=== PATIENT | female | born 1935 | race Caucasian/White ===

== ENCOUNTER 2021-05-30 19:25 | Observation (INO) | payer MEDICARE ==
[~2021-05-30] VITALS: Ht 144.8 cm; Wt 54.4 kg
[2021-05-30 22:38] LABS: BASO % 0.4 % (0.0-1.0); EOS # 0.1 10^3/uL (0.0-0.5); EOS % 1.7 % (0.0-3.0); HEMATOCRIT 27.4 % (36.0-47.0); HEMOGLOBIN 8.8 g/dl (12.0-15.5); LYMPH # 0.7 10^3/uL (1.5-5.0); LYMPH % 15.4 % (24.0-44.0); MEAN CORPUSCULAR HEMOGLOBIN 33.2 pg (27.0-33.0); MEAN CORPUSCULAR HGB CONC 32.1 g/dl (32.0-36.5); MEAN CORPUSCULAR VOLUME 103.4 fl (80.0-96.0); MONO # 0.6 10^3/uL (0.0-0.8); NEUTROPHILS # 3.3 10^3/uL (1.5-8.5); NEUTROPHILS % 70.3 % (36.0-66.0); PLATELET COUNT, AUTOMATED 253 10^3/uL (150-450); RED BLOOD COUNT 2.65 10^6/uL (4.00-5.40); WHITE BLOOD COUNT 4.7 10^3/uL (4.0-10.0)
[2021-05-30] MEDS ORDERED: vit b PO (23:13)
[2021-05-30] MEDS ORDERED: MIRT1TAB16 PO (23:13)
[2021-05-30] MEDS ORDERED: SYNT50TA PO (23:13)
[2021-05-30] MEDS ORDERED: PEPC1TAB5 PO (23:13)
[2021-05-30] MEDS ORDERED: XARE20TA PO (23:13)
[2021-05-30] MEDS ORDERED: LEXA5TAB13 PO (23:13)
[2021-05-30] MEDS ORDERED: SYNT75TA PO (23:13)
[2021-05-30] MEDS ORDERED: SIMV20TA22 PO (23:13)
[2021-05-30] MEDS ORDERED: POTA20TA6 PO (23:13)
[2021-05-30] MEDS ORDERED: LISI20TA33 PO (23:13)
--- NOTE | 2021-05-30 23:42 | REPVR ---
PROCEDURE INFORMATION: Exam: US Duplex Right Lower Extremity Veins, Limited Exam date and time: 05/30/2021 11:09 PM Age: 86 years old Clinical indication: Edema, localized; Lower extremity, right; Additional info: Right lower extremity swelling and pain. TECHNIQUE: Imaging protocol: Real-time Duplex ultrasound of the Right Lower Extremity with 2-D winter scale, color Doppler flow and spectral waveform analysis with image documentation. Limited exam was focused on the right lower extremity veins. COMPARISON: No relevant prior studies available. FINDINGS: Right deep veins: Unremarkable. The common femoral, femoral, and popliteal veins are patent without thrombus. Normal compressibility, augmentation response and Doppler waveforms. The right posterior tibial and peroneal veins were not visualized due to soft tissue edema in the right calf. Right superficial veins: Unremarkable. Saphenofemoral junction is patent without thrombus. Soft tissues: There is soft tissue edema in the right calf. IMPRESSION: No deep vein thrombosis in the veins imaged in the right lower extremity. Electronically signed by: Ariel Norman On 05/30/2021 23:41:40 PM
[2021-05-31] LABS: BLOOD UREA NITROGEN 14 MG/DL (7-18); CALCIUM LEVEL 8.4 MG/DL (8.8-10.2); CARBON DIOXIDE LEVEL 28 MEQ/L (21-32); CHLORIDE LEVEL 109 MEQ/L (98-107); CREATININE FOR GFR 0.88 MG/DL (0.55-1.30); GLOMERULAR FILTRATION RATE > 60.0 (>32); GLUCOSE, FASTING 144 MG/DL (70-100); MAGNESIUM LEVEL 2.2 MG/DL (1.8-2.4); NT-PRO BNP 607 PG/ML (<450); POTASSIUM SERUM 3.6 MEQ/L (3.5-5.1); SODIUM LEVEL 144 MEQ/L (136-145)
[2021-05-31] MEDS ORDERED: FUROSEMIDE 40MG/4ML VIAL (J1940) IV ONE (00:20)
[2021-05-31] MEDS ORDERED: MAALOX 30 ML SUSP *UDC PO PRN (00:45)
[2021-05-31] MEDS ORDERED: MOM 30ML SUSPENSION UDC PO PRN (00:45)
[2021-05-31] MEDS ORDERED: ACETAMINOPHEN TAB 650MG DOSE (2X325MG) PO PRN (00:45)
--- NOTE | 2021-05-31 00:47 | HPEPDOC ---
[facility] Medical History & Physical Date of Admission May 31, 2021 Date of Service: May 31, 2021 Other Provider new in town no PCP yet Attending Physician: JOSEY CASTAÑEDA MD History and Physical TIME OF SERVICE: 110am CHIEF COMPLAINT: pain HISTORY OF PRESENT ILLNESS: is an 86 yr old F that recently moved to the area from [place] to live with her grand-daughter. Over the last 3 days she developed right lower leg redness pain and swelling that makes it difficult for her to walk. She denies having fevers or chills. REVIEW OF SYSTEMS: 10-point review of systems negative except as listed in HPI PAST MEDICAL/ SURGICAL HISTORY: Multiple Myeloma (last dose of Chemo March), chemo port associated LUE DVT, Hypothyroidism, essential HTN, mild cognitive impairment, right arm chemo port placement FAMILY HISTORY: reviewed non-contributory to current admission SOCIAL HISTORY: she doesn't smoke ALLERGIES: Please see below. HOME MEDICATIONS: Please see below. PHYSICAL EXAMINATION: Vital Signs Date Time Temp Pulse Resp B/P (MAP) Pulse Ox O2 Delivery O2 Flow Rate FiO2 05/30/21 19:27 98.6 76 18 183/88 (119) 98 Room Air GENERAL APPEARANCE: well-nourished and developed/ NAD HEENT: EOMI / MMM&P CARDIOVASCULAR: RRR/NMRG LUNGS: CTAB on RA ABDOMEN: contour flat MUSCULOSKELETAL: NCAT /rubor,dalor & calor of RLE INTEGUMENT: not flushed pale or diaphoretic NEUROLOGICAL: CN 2-12 grossly intact / speech not dysarthric PSYCHIATRIC: A&O x 3 / able to understand and follow all commands LABORATORY DATA: IMAGING: RLE US "IMPRESSION: No deep vein thrombosis in the veins imaged in the right lower extremity." MICROBIOLOGY: Respiratory panel neg ASSESSMENT: is an 86 yr old w Multiple Myeloma, port associated LUE DVT, Hypothyroidism, HTN & mild cognitive impairment who is admitted for management of RLE cellulitis. PLAN: 1 RLE Cellulitis -ALT-70 Score to diagnose LE Cellulitis = 5 points = > 82.2% likelihood of true cellulitis Plan: admit under observation status / fall precautions / elevate leg / because the infection is mild we will switch from IV to Po Bactrim which covers both MRSA and beta hemolytic strep/ will refer her to the [facility] 2 Hx of LUE DVT associated with left upper extremity port Plan: c/w rivaroxaban 3 MM She has anemia but her Ca++ and Cr are not elevated Plan: request records from ([employer] in [place]) / she will need a referral to our local Hematologists 3 Essential HTN Plan: lisinopril 4 Hypothyroidism Plan: levothyroxine DVT px n/a on DOAC Dispo: home with granddaughter Yanna Beal [phone] after less than 2 midnights stay Home Medications Scheduled Escitalopram Oxalate (Lexapro) 5 Mg Tablet, 5 MG PO DAILY Famotidine (Famotidine) 10 Mg Tablet, 10 MG PO DAILY Levothyroxine Sodium (Synthroid) 50 Mcg Tablet, 50 MCG PO 3XW SATURDAY, SATURDAY AND SATURDAY Levothyroxine Sodium (Synthroid) 75 Mcg Tablet, 75 MCG PO 4XWK SATURDAY, SATURDAY, SATURDAY AND SATURDAY Lisinopril (Lisinopril) 20 Mg Tablet, 20 MG PO DAILY Mirtazapine (Remeron) 15 Mg Tablet, 22.5 MG PO QHS Potassium Chloride (Potassium Chloride) 20 Meq Tab.er.prt, 20 MEQ PO DAILY Rivaroxaban (Xarelto) 20 Mg Tablet, 20 MG PO QPM TAKES AFTER DINNERTIME Simvastatin (Simvastatin) 20 Mg Tablet, 20 MG PO QHS Vitamin B Complex (Vitamin B Complex) 1 Each Tablet, 1 TAB PO DAILY Allergies Coded Allergies: moxifloxacin (Verified Allergy, Intermediate, 05/30/21) A-FIB/CHADSVASC A-FIB History Current/History of A-Fib/PAF?: No Current PO Anticoag Therapy: JOSEY Neves MD May 31, 2021 00:47
[2021-05-31 01:13] LABS: RSV AMPLIFICATION NEGATIVE (NEGATIVE)
[2021-05-31] MEDS ORDERED: MIRT-62 PO (02:17)
[2021-05-31] MEDS ORDERED: VITATAB73 PO (02:17)
[2021-05-31] MEDS ORDERED: FAMO10TA52 PO (02:17)
[2021-05-31] MEDS ORDERED: HOME MED LIST COMPLETE! XX SCH (02:20)
[2021-05-31 02:32] LABS: ERYTHROCYTE SEDIMENTATION RATE 126 mm/hr (0-30)
[2021-05-31 02:49] VITALS: BP 151/76
[2021-05-31] MEDS: BACTRIM 160MG/800MG DS TAB PO SCH ×2 (03:16→20:12)
[2021-05-31 06:00] VITALS: BP 115/69
[2021-05-31] MEDS ORDERED: LEVOTHYROXINE 50MCG TABLET (0.05MG) PO SCH (06:00)
[2021-05-31 06:52] LABS: BLOOD UREA NITROGEN 13 MG/DL (7-18); CARBON DIOXIDE LEVEL 31 MEQ/L (21-32); CHLORIDE LEVEL 108 MEQ/L (98-107); CREATININE FOR GFR 0.82 MG/DL (0.55-1.30); GLOMERULAR FILTRATION RATE > 60.0 (>32); GLUCOSE, FASTING 91 MG/DL (70-100); POTASSIUM SERUM 3.6 MEQ/L (3.5-5.1); SODIUM LEVEL 144 MEQ/L (136-145)
[2021-05-31 06:53] LABS: ALBUMIN 2.5 GM/DL (3.2-5.2); ALT/SGPT 18 U/L (12-78); BILIRUBIN,TOTAL 0.5 MG/DL (0.2-1.0); CALCIUM LEVEL 8.6 MG/DL (8.8-10.2); TOTAL PROTEIN 5.9 GM/DL (6.4-8.2)
[2021-05-31] MEDS ORDERED: PILL CUTTER 1 EACH XX PRN (08:05)
[2021-05-31] MEDS: ESCITALOPRAM OXALATE 5MG TABLET (LEXAPRO) PO SCH (08:34)
[2021-05-31] MEDS: POTASSIUM CHLORIDE 10MEQ SR TABLET PO SCH (08:34)
[2021-05-31 09:05] VITALS: BP 107/58
[2021-05-31 09:25] VITALS: BP_SYST 102; BP_SYST 103; BP_DIAS 55; BP_DIAS 56; BP_DIAS 57
[2021-05-31 09:58] LABS: BASO % 0.4 % (0.0-1.0); EOS # 0.1 10^3/uL (0.0-0.5); EOS % 1.7 % (0.0-3.0); HEMATOCRIT 28.6 % (36.0-47.0); HEMOGLOBIN 9.1 g/dl (12.0-15.5); LYMPH # 0.9 10^3/uL (1.5-5.0); LYMPH % 19.4 % (24.0-44.0); MEAN CORPUSCULAR HGB CONC 31.8 g/dl (32.0-36.5); MEAN CORPUSCULAR VOLUME 103.6 fl (80.0-96.0); MONO # 0.4 10^3/uL (0.0-0.8); NEUTROPHILS # 3.3 10^3/uL (1.5-8.5); NEUTROPHILS % 69.1 % (36.0-66.0); PLATELET COUNT, AUTOMATED 284 10^3/uL (150-450); RED BLOOD COUNT 2.76 10^6/uL (4.00-5.40); WHITE BLOOD COUNT 4.8 10^3/uL (4.0-10.0)
--- NOTE | 2021-05-31 10:11 | ECGEPIP ---
[facility] Test Date: 2021-05-31 Pat Name: NEHEMIAS COSME Department: Room: [place] [address] Gender: Female [employer]: [place] : 1935 Requested By: VIOLETTA CAMERON Order Number: [id number] Reading MD: Quincy Fenton Measurements Intervals [place] Rate: 70 P: 45 TX: 166 QRS: -10 QRSD: 86 T: 28 QT: 420 QTc: 453 Interpretive Statements Normal sinus rhythm No prior Electronically Signed on 05-31-2021 10:11:10 EDT by Quincy Fenton
[2021-05-31 10:19] LABS: TROPONIN I < 0.02 NG/ML (< 0.10)
[2021-05-31] MEDS ORDERED: NS 500 ML IV ONE (10:40)
[2021-05-31 11:56] LABS: INR 1.38; PARTIAL THROMBOPLASTIN TIME 32.9 SECONDS (25.9-37.0); PROTHROMBIN TIME 17.3 SECONDS (12.7-14.5)
[2021-05-31 14:00] VITALS: BP 114/66
--- NOTE | 2021-05-31 14:24 | IPNPDOC ---
Date Seen The patient was seen on 05/31/21. Progress Note SUBJECTIVE: Patient was seen examined at bedside. Upon my entering the room patient was being helped into bed by nurse and nurses aide. Apparently patient was on the toilet when she felt lightheaded dizzy and diaphoretic. She did not have a syncopal episode. When she was helped into bed her symptoms subsided. She denies any cysts shortness of breath palpitations chest pain nausea vomiting or diarrhea. She had no blurred vision. She is alert and oriented x4. OBJECTIVE PHYSICAL EXAMINATION: VITAL SIGNS: please see below General: NAD, comfortable HEENT: PERRLA, EOMI, sclerae clear Neck: supple, normal ROM, no JVD Respiratory: lungs CTAB, no wheeze, no rales, no crackles CVS: RRR, normal S1, S2, no murmurs Abdo: soft, no masses, no hepatosplenomegaly, BS+, no rebound tenderness Extremities: no edema, pulses 2+ MSK: no joint deformities, normal ROM Neuro: no focal neuro deficits, moving all 4 extremities, CN2-12 intact. Strength 5/5 in all 4 extremities. No nystagmus. No slurred speech. No pronator drift Psych: calm, cooperative, AAO x 3 LABORATORY DATA, IMAGING STUDIES, MICROBIOLOGY: Please see below. Venous duplex (05/30/21): IMPRESSION: No deep vein thrombosis in the veins imaged in the right lower extremity. Echocardiogram: Ordered on 05/31/2021 DVT prophylaxis ordered?: Patient is on Xarelto. ASSESSMENT AND PLAN: is an 86 yr old w Multiple Myeloma, port associated LUE DVT, Hypothyroidism, HTN & mild cognitive impairment who is admitted for management of RLE cellulitis. She also sustained a presyncopal episode on the morning of 05/31/2021. PROBLEMS: #RLE Cellulitis: - will continue with bactrim that was started on admission #Elevated Lactic Acid - in setting of cellulitis, possibly exacerbated by dose of IV furosemide patient received in ER on admission - will give 500 cc NS bolus - repeat LA ordered - will check blood cx #Pre-syncope - likely vasovagal, was sitting on toilet during event - orthostats negative - check 2D echo - patient has refused - EKG showing NSR. - tele x 24 hours ordered - HSE ordered from PT. #Hx of LUE DVT associated with LUE port - c/w Xarelto #Multiple Myeloma - records have been requested from Dr. Jimenez (patient's MM specialist) - will refer patient to oncology at [facility]. #Essential HTN - c/w lisinopril #Hypothyroidism - c/w levothyroxine - TSH elevated, 12. Free T4 wnl DVT ppx: on xarelto Dispo: patient is expected to be DC on 06/01/21. CODE STATUS: patient has informed me directly, that she wishes to be DNR/DNI, and has MOLST forms at home. She is clearly alert and oriented, and has full capacity to make personal medical decisions. DNR/DNI orders placed. VS, I&O, 24H, Fishbone Vital Signs/I&O Vital Signs Date Time Temp Pulse Resp B/P (MAP) Pulse Ox O2 Delivery O2 Flow Rate FiO2 05/31/21 09:25 72 103/57 (72) 76 102/56 (71) 80 102/55 (71) 05/31/21 09:05 20 95 Room Air 05/31/21 06:00 98.0 I&O- Last 24 Hours up to 6 AM 05/31/21 06:00 Intake Total 0 ml Output Total 1350 ml Balance -1350 ml Laboratory Data 24H LABS Laboratory Tests 2 05/30/21 22:22: Immature Granulocyte % (Auto) 0.2, Neutrophils (%) (Auto) 70.3H, Lymphocytes (%) (Auto) 15.4L, Monocytes (%) (Auto) 12.0H, Eosinophils (%) (Auto) 1.7, Basophils (%) (Auto) 0.4, Neutrophils # (Auto) 3.3, Lymphocytes # (Auto) 0.7L, Monocytes # (Auto) 0.6, Eosinophils # (Auto) 0.1, Basophils # (Auto) 0.0, Nucleated Red Blood Cells % (auto) 0.0, Erythrocyte Sedimentation Rate 126H, Anion Gap 7L, Glomerular Filtration Rate > 60.0, Calcium Level 8.4L, Magnesium Level 2.2, NT -Pro-B-Type Natriuretic Peptide 607H 05/31/21 00:15: Coronavirus (COVID-19)(PCR) NEGATIVE, Influenza Type A (RT-PCR) NEGATIVE, Influenza Type B (RT-PCR) NEGATIVE, Respiratory Syncytial Virus (PCR) NEGATIVE 05/31/21 05:56: Anion Gap 5L, Glomerular Filtration Rate > 60.0, Calcium Level 8.6L, Total Bilirubin 0.5, Aspartate Amino Transf (AST/SGOT) 16, Alanine Aminotransferase (ALT/SGPT) 18, Alkaline Phosphatase 55, Total Protein 5.9L, Albumin 2.5L, Albumin/Globulin Ratio 0.7L 05/31/21 09:12: Troponin I < 0.02, Thyroid Stimulating Hormone (TSH) 12.500H 05/31/21 09:22: Immature Granulocyte % (Auto) 0.4, Neutrophils (%) (Auto) 69.1H, Lymphocytes (%) (Auto) 19.4L, Monocytes (%) (Auto) 9.0H, Eosinophils (%) (Auto) 1.7, Basophils (%) (Auto) 0.4, Neutrophils # (Auto) 3.3, Lymphocytes # (Auto) 0.9L, Monocytes # (Auto) 0.4, Eosinophils # (Auto) 0.1, Basophils # (Auto) 0.0, Nucleated Red Blood Cells % (auto) 0.0, Prothrombin Time 17.3H, Prothromb Time International Ratio 1.38, Activated Partial Thromboplast Time 32.9, Lactic Acid Level 3.4*H, Free Thyroxine 0.84 CBC/BMP Laboratory Tests 05/30/21 22:22 05/31/21 05:56 05/31/21 09:22 Microbiology Microbiology 05/31/21 Blood Culture, Received Pending 05/31/21 Blood Culture, Received Pending VIOLETTA CAMERON MD May 31, 2021 14:24
[2021-05-31] MEDS: MIRTAZAPINE 15 MG TAB PO SCH ×2 (20:12→20:16)
[2021-05-31] MEDS ORDERED: SIMVASTATIN 20 MG TAB PO SCH (21:00)
[2021-05-31] MEDS ORDERED: RIVAROXABAN 20 MG TAB (XARELTO) PO SCH (21:00)
[2021-05-31 22:00] VITALS: BP 143/72
[2021-06-01 06:00] VITALS: BP 111/62
[2021-06-01] MEDS ORDERED: LEVOTHYROXINE 75MCG TABLET (0.075MG) PO SCH (06:00)
[2021-06-01 07:35] VITALS: BP 105/68
[2021-06-01 08:09] VITALS: BP 105/68
[2021-06-01] MEDS: ESCITALOPRAM OXALATE 5MG TABLET (LEXAPRO) PO SCH (09:00)
[2021-06-01] MEDS: POTASSIUM CHLORIDE 10MEQ SR TABLET PO SCH (09:26)
[2021-06-01 09:27] VITALS: BP 105/68
[2021-06-01] MEDS: BACTRIM 160MG/800MG DS TAB PO SCH (09:27)
[2021-06-01 09:31] LABS: BASO % 0.4 % (0.0-1.0); EOS # 0.1 10^3/uL (0.0-0.5); EOS % 1.3 % (0.0-3.0); HEMATOCRIT 29.5 % (36.0-47.0); HEMOGLOBIN 9.4 g/dl (12.0-15.5); LYMPH # 0.7 10^3/uL (1.5-5.0); LYMPH % 14.4 % (24.0-44.0); MEAN CORPUSCULAR HEMOGLOBIN 33.3 pg (27.0-33.0); MEAN CORPUSCULAR HGB CONC 31.9 g/dl (32.0-36.5); MEAN CORPUSCULAR VOLUME 104.6 fl (80.0-96.0); MONO # 0.4 10^3/uL (0.0-0.8); MONO % 7.5 % (2.0-8.0); NEUTROPHILS # 3.7 10^3/uL (1.5-8.5); PLATELET COUNT, AUTOMATED 254 10^3/uL (150-450); RED BLOOD COUNT 2.82 10^6/uL (4.00-5.40); WHITE BLOOD COUNT 4.8 10^3/uL (4.0-10.0)
[2021-06-01 10:01] LABS: ALBUMIN 2.6 GM/DL (3.2-5.2); BILIRUBIN,TOTAL 0.2 MG/DL (0.2-1.0); CALCIUM LEVEL 8.6 MG/DL (8.8-10.2); GLOMERULAR FILTRATION RATE 56.1 (>32); MAGNESIUM LEVEL 2.1 MG/DL (1.8-2.4); POTASSIUM SERUM 3.7 MEQ/L (3.5-5.1)
[2021-06-01] MEDS ORDERED: ACET1TAB55 PO (10:09)
[2021-06-01] MEDS ORDERED: BACTDSTA PO (10:09)
--- NOTE | 2021-06-01 12:24 | DS.PDOC ---
Discharge Summary General Date of Admission May 31, 2021 at 01:09 Date of Discharge 06/01/21 Discharge Summary PROCEDURES PERFORMED DURING STAY: [None]. ADMITTING DIAGNOSES: RLE cellulitis Hx of LUE DVT associated with LUE port Multiple Myeloma Essential HTN Hypothyroidism DISCHARGE DIAGNOSES: Pre-syncopal episode RLE cellulitis Hx of LUE DVT associated with LUE port Multiple Myeloma Essential HTN Hypothyroidism COMPLICATIONS/CHIEF COMPLAINT: Swelling Of Feet, Hx Cancer. HISTORY OF PRESENT ILLNESS: is an 86 yr old F that recently moved to the area from [place] to live with her grand-daughter. Over the last 3 days she developed right lower leg redness pain and swelling that makes it difficult for her to walk. She denies having fevers or chills. HOSPITAL COURSE: #RLE Cellulitis: - will continue with bactrim that was started on admission, complete 7 days after DC. - improved based on skin markings - mild pain persists #Elevated Lactic Acid - in setting of cellulitis, possibly exacerbated by dose of IV furosemide patient received in ER on admission - will give 500 cc NS bolus - repeat LA ordered - resolved. - 24 blood cx negative - to follow up with final blood cx on outpatient basis. #Pre-syncope - likely vasovagal, was sitting on toilet during event - orthostats negative - check 2D echo - patient has refused - EKG showing NSR. - tele x 24 hours ordered - no events noted. - HSE ordered from PT. #Hx of LUE DVT associated with LUE port - c/w Xarelto #Multiple Myeloma - records have been requested from Dr. Jimenez (patient's MM specialist) - will refer patient to oncology at [facility]. #Essential HTN - c/w lisinopril #Hypothyroidism - c/w levothyroxine - TSH elevated, 12. Free T4 wnl DVT ppx: on xarelto CODE STATUS: patient has informed me directly, that she wishes to be DNR/DNI, and has MOLST forms at home. She is clearly alert and oriented, and has full capacity to make personal medical decisions. DNR/DNI orders placed. DISCHARGE MEDICATIONS: Please see below. ALLERGIES: Please see below. PHYSICAL EXAMINATION ON DISCHARGE: VITAL SIGNS: please see below General: NAD, comfortable HEENT: PERRLA, EOMI, sclerae clear Neck: supple, normal ROM, no JVD Respiratory: lungs CTAB, no wheeze, no rales, no crackles CVS: RRR, normal S1, S2, no murmurs Abdo: soft, no masses, no hepatosplenomegaly, BS+, no rebound tenderness Extremities: no edema, pulses 2+ (DP and PT) bilaterally. Cap refill < 2 sec. Skin: cellulitis of RLE demarcated with marker, improved. Receding from marker border. No purulence. No ulcers. MSK: no joint deformities, normal ROM Neuro: no focal neuro deficits, moving all 4 extremities, CN2-12 intact. Streng th 5/5 in all 4 extremities. No nystagmus. No slurred speech. No pronator drift Psych: calm, cooperative, AAO x 3 LABORATORY DATA: Please see below. IMAGING: Venous duplex (05/30/21): IMPRESSION: No deep vein thrombosis in the veins imaged in the right lower extremity. PROGNOSIS: good ACTIVITY: [As tolerated]. DIET: as tolerated DISCHARGE PLAN: Discharge home. To continue Bactrim DS twice daily x7 days. Shane AZUL to assist with giving appointment with primary care doctor as patient is new to the area. Referral for oncology at [facility] was given for multiple myeloma. DISPOSITION: Home, with granddaughter, Yanna Beal telephone number [phone]. I explained discharge plan and answered all questions in detail. DISCHARGE INSTRUCTIONS: . Please follow-up with your primary care doctor within 3-5 days . Please follow-up with oncology within 1-2 weeks . Please taking medications as prescribed. Continue Bactrim DS twice daily x7 days . If you develop bleeding, chest pain, shortness of breath, seizures, nausea, fevers, or otherwise worsening of your symptoms, please call 911 or return to the nearest emergency room ITEMS TO FOLLOWUP ON ON OUTPATIENT: Follow-up on final blood cultures outpatient. DISCHARGE CONDITION: [Stable]. TIME SPENT ON DISCHARGE: 35 minutes Vital Signs/I&Os Vital Signs Date Time Temp Pulse Resp B/P (MAP) Pulse Ox O2 Delivery O2 Flow Rate FiO2 06/01/21 09:27 105/68 06/01/21 08:09 98.4 84 11 98 Room Air I&O- Last 24 Hours up to 6 AM 06/01/21 05:59 Intake Total 1420 ml Output Total 1700 ml Balance -280 ml Laboratory Data Labs 24H Laboratory Tests 2 05/31/21 13:55: Lactic Acid Level 1.5, Lactic Acid Followup at 4 Hours 1.7 06/01/21 09:13: Immature Granulocyte % (Auto) 0.4, Neutrophils (%) (Auto) 76.0H, Lymphocytes (%) (Auto) 14.4L, Monocytes (%) (Auto) 7.5, Eosinophils (%) (Auto) 1.3, Basophils ( %) (Auto) 0.4, Neutrophils # (Auto) 3.7, Lymphocytes # (Auto) 0.7L, Monocytes # (Auto) 0.4, Eosinophils # (Auto) 0.1, Basophils # (Auto) 0.0, Nucleated Red Blood Cells % (auto) 0.0, Anion Gap 8, Glomerular Filtration Rate 56.1, Calcium Level 8.6L, Magnesium Level 2.1, Total Bilirubin 0.2#, Aspartate Amino Transf (AST/SGOT) 12, Alanine Aminotransferase (ALT/SGPT) 19, Alkaline Phosphatase 63, Total Protein 6.0L, Albumin 2.6L, Albumin/Globulin Ratio 0.8L CBC/BMP Laboratory Tests 06/01/21 09:13 Microbiology Microbiology 05/31/21 Blood Culture - Preliminary, Resulted No growth after 24 hours . All specim... 05/31/21 Blood Culture - Preliminary, Resulted No growth after 24 hours . All specim... Discharge Medications Scheduled Escitalopram Oxalate (Lexapro) 5 Mg Tablet, 5 MG PO DAILY, (Reported) Famotidine (Famotidine) 10 Mg Tablet, 10 MG PO DAILY, (Reported) Levothyroxine Sodium (Synthroid) 50 Mcg Tablet, 50 MCG PO 3XW, (Reported) SATURDAY, SATURDAY AND SATURDAY Levothyroxine Sodium (Synthroid) 75 Mcg Tablet, 75 MCG PO 4XWK, (Reported) SATURDAY, SATURDAY, SATURDAY AND SATURDAY Lisinopril (Lisinopril) 20 Mg Tablet, 20 MG PO DAILY, (Reported) Mirtazapine (Remeron) 15 Mg Tablet, 22.5 MG PO QHS, (Reported) Potassium Chloride (Potassium Chloride) 20 Meq Tab.er.prt, 20 MEQ PO DAILY, (Reported) Rivaroxaban (Xarelto) 20 Mg Tablet, 20 MG PO QPM, (Reported) TAKES AFTER DINNERTIME Simvastatin (Simvastatin) 20 Mg Tablet, 20 MG PO QHS, (Reported) Sulfamethoxazole/Trimethoprim (Sulfamethoxazole-Tmp Ds Tablet) 1 Each Tablet, 1 TAB PO BID Vitamin B Complex (Vitamin B Complex) 1 Each Tablet, 1 TAB PO DAILY, (Reported) Scheduled PRN Acetaminophen (Acetaminophen) 325 Mg Tablet, 650 MG PO Q4H PRN for MILD PAIN or TEMP > 101 Allergies Coded Allergies: moxifloxacin (Verified Allergy, Intermediate, 05/30/21) VIOLETTA CAMERON MD Jun 01, 2021 12:24
[2021-08-22] MEDS ORDERED: AMLO2.5T3 (08:40)
[2021-08-22] MEDS ORDERED: BACITAB (08:40)
[2021-08-22] MEDS ORDERED: KETO2CR TOP (09:11)
== END 2021-06-01 13:33 | disposition home or self-care (01) ==
LOC: M ED 19:25 → M ED INP 19:26 → UNDOADMOB 05-31 01:09 → M ED INP 05-31 01:09 → M MSPAV 05-31 02:50 → M ED INP 05-31 02:50 → UNDODISOB 06-01 13:33
PROVIDERS: ADMIT Internal Medicine; ATTEND Family Medicine
DX: L03.115 Cellulitis of right lower limb (principal); R55 Syncope and collapse; R74.02 Elevation of levels of lactic acid dehydrogenase [LDH]; C90.00 Multiple myeloma not having achieved remission; I10 Essential (primary) hypertension; E03.9 Hypothyroidism, unspecified; Z86.718 Personal history of other venous thrombosis and embolism; G31.84 Mild cognitive impairment of uncertain or unknown etiology; Z66 Do not resuscitate; Z79.899 Other long term (current) drug therapy; Z79.01 Long term (current) use of anticoagulants; Z79.2 Long term (current) use of antibiotics; Z88.1 Allergy status to other antibiotic agents
CPT/HCPCS: 36415; 80048; 80053; 83605; 83735; 83880; 84439; 84443; 84484; 85025; 85610; 85652; 85730; 87040; 87631; 93005; 93971; 96374; 97161; 99284; G0378; J1940

== ENCOUNTER → 2021-06-20 | Outpatient (REF) | payer MEDICARE ==
[~2021-06-20] MED LIST: ACET1TAB55 PO; BACTDSTA PO; FAMO10TA52 PO; LEXA5TAB13 PO; LISI20TA33 PO; MIRT-62 PO; MIRT1TAB16 PO; PEPC1TAB5 PO; POTA20TA6 PO; SIMV20TA22 PO; SYNT50TA PO; SYNT75TA PO; VITATAB73 PO; XARE20TA PO; vit b PO
[2021-06-20 10:40] LABS: BASO % 0.5 % (0.0-1.0); HEMATOCRIT 25.9 % (36.0-47.0); HEMOGLOBIN 8.6 g/dl (12.0-15.5); LYMPH # 0.6 10^3/uL (1.5-5.0); LYMPH % 15.9 % (24.0-44.0); MEAN CORPUSCULAR HEMOGLOBIN 33.5 pg (27.0-33.0); MEAN CORPUSCULAR HGB CONC 33.2 g/dl (32.0-36.5); MEAN CORPUSCULAR VOLUME 100.8 fl (80.0-96.0); MONO # 0.5 10^3/uL (0.0-0.8); MONO % 12.3 % (2.0-8.0); NEUTROPHILS # 2.7 10^3/uL (1.5-8.5); NEUTROPHILS % 69.8 % (36.0-66.0); PLATELET COUNT, AUTOMATED 236 10^3/uL (150-450); RED BLOOD COUNT 2.57 10^6/uL (4.00-5.40); WHITE BLOOD COUNT 3.9 10^3/uL (4.0-10.0)
[2021-06-20 11:04] LABS: ALT/SGPT 36 U/L (12-78); BILIRUBIN,TOTAL 0.3 MG/DL (0.2-1.0); BLOOD UREA NITROGEN 19 MG/DL (7-18); CARBON DIOXIDE LEVEL 27 MEQ/L (21-32); CHLORIDE LEVEL 104 MEQ/L (98-107); CREATININE FOR GFR 0.87 MG/DL (0.55-1.30); GLOMERULAR FILTRATION RATE > 60.0 (>32); GLUCOSE, FASTING 90 MG/DL (70-100); POTASSIUM SERUM 4.1 MEQ/L (3.5-5.1); SODIUM LEVEL 136 MEQ/L (136-145); TOTAL PROTEIN 6.8 GM/DL (6.4-8.2)
== END ==
LOC: M LAB REF 10:16
PROVIDERS: ATTEND Physician Assistant Medical
DX: I10 Essential (primary) hypertension (principal); C90.00 Multiple myeloma not having achieved remission

== ENCOUNTER 2021-08-22 15:26 | Inpatient (IN) | payer MEDICARE ==
[~2021-08-22] VITALS: Ht 157.5 cm; Wt 49.2 kg
[~2021-08-22 15:26] MED LIST changes: +AMLO2.5T3; +BACITAB; +KETO2CR TOP
--- NOTE | 2021-08-22 16:17 | REP ---
INDICATION: syncope. COMPARISON: None. TECHNIQUE: Single portable AP view of the chest was performed. FINDINGS: There is no acute infiltrate or pulmonary edema. Lungs are clear. The heart is not significantly enlarged. The mediastinal silhouette is unremarkable. The visualized osseous structures are intact.Right arm PICC line is noted with the tip in the superior vena cava. IMPRESSION: No acute pulmonary disease. <Electronically signed by Carson Hayes > 08/22/21 [id number]
[2021-08-22 16:28] LABS: BASO % 0.1 % (0.0-1.0); EOS % 0.6 % (0.0-3.0); HEMATOCRIT 32.5 % (36.0-47.0); HEMOGLOBIN 10.6 g/dl (12.0-15.5); LYMPH # 0.4 10^3/uL (1.5-5.0); LYMPH % 6.4 % (24.0-44.0); MEAN CORPUSCULAR HEMOGLOBIN 32.4 pg (27.0-33.0); MEAN CORPUSCULAR HGB CONC 32.6 g/dl (32.0-36.5); MEAN CORPUSCULAR VOLUME 99.4 fl (80.0-96.0); MONO # 0.4 10^3/uL (0.0-0.8); MONO % 5.2 % (2.0-8.0); NEUTROPHILS # 5.9 10^3/uL (1.5-8.5); NEUTROPHILS % 87.6 % (36.0-66.0); PLATELET COUNT, AUTOMATED 180 10^3/uL (150-450); RED BLOOD COUNT 3.27 10^6/uL (4.00-5.40); WHITE BLOOD COUNT 6.8 10^3/uL (4.0-10.0)
[2021-08-22] MEDS ORDERED: MORPHINE 2 MG/ML 1ML VIAL (J2270) IV ONE (16:30)
[2021-08-22] MEDS ORDERED: ONDANSETRON 4MG/2ML VIAL IV ONE (16:50)
[2021-08-22 17:03] LABS: ALBUMIN 3.5 GM/DL (3.2-5.2); ALT/SGPT 19 U/L (12-78); BILIRUBIN,DIRECT < 0.1 MG/DL (0.0-0.2); BILIRUBIN,TOTAL 0.3 MG/DL (0.2-1.0); BLOOD UREA NITROGEN 19 MG/DL (7-18); CALCIUM LEVEL 8.6 MG/DL (8.8-10.2); CARBON DIOXIDE LEVEL 25 MEQ/L (21-32); CHLORIDE LEVEL 98 MEQ/L (98-107); CREATININE FOR GFR 0.94 MG/DL (0.55-1.30); GLOMERULAR FILTRATION RATE > 60.0 (>32); GLUCOSE, FASTING 129 MG/DL (70-100); LIPASE 140 U/L (73-393); POTASSIUM SERUM 5.4 MEQ/L (3.5-5.1); SODIUM LEVEL 133 MEQ/L (136-145); TOTAL PROTEIN 6.9 GM/DL (6.4-8.2)
[2021-08-22 17:09] LABS: MB/CK RELATIVE INDEX 1.32 (< OR =4)
[2021-08-22] MEDS ORDERED: ISOVUE-370 76% 100ML VIAL As Ordered ONE (17:30)
--- OUTSIDE RECORDS SUMMARY | 2021-08-22 17:36 | CCD ---
Author Author [facility] Organization [facility] Address Unknown Phone Unavailable Care Team Providers Care Orchestra Conductor Name Role Phone Corrina Patterson Unavailable PROBLEMS Type Condition ICD9-CM Code [id number] Code Onset Dates Condition S tatus W/U Status Risk SNOMED Code Notes Problem Primary hypertension I10 Active confirmed 64637866 Problem Candidiasis of breast B37.89 Active confirmed 14311896 Problem Mixed hyperlipidemia E78.2 Active confirmed 776867863 Problem Multiple myeloma, remission status unspecified C90 .00 Active confirmed 314623454 Problem H/O deep venous thrombosis Z86.718 Active confirmed 956784803 Problem Memory loss R41.3 Active confirmed 66730582 Problem Acquired hypothyroidism E03.9 Active confirmed [id number] ALLERGIES Allergen (clinical drug ingredient) Drug/Non Drug Allergy do cumented on EMR Reaction Allergy Type Onset Date Status moxifloxacin Avelox Confusion Drug Allergy Active furosemide Furosemide([facility] Code:[id number]) presyncope Drug Allergy Active ENCOUNTERS from 1935 to 2021-07-18 Encounter Location Date Provider Diagnosis [address] [phone] [place] [address] Jul, Corrina Patterson IMMUNIZATIONS No Information SOCIAL HISTORY Tobacco Use: Social History Observation Description Date Details (start date - stop date) Never Smoker Sex Assigned At : Social History Observation Description Sex Assigned At Unknown Education: Question Answer Notes Level of Education: Finished College Language: Question Answer Notes Languages spoken: Malawian Alcohol Screening: Question Answer Notes Did you have a drink containing alcohol in the past year? No Points 0 Interpretation Negative Tobacco Use: Question Answer Notes Are you a: never smoker REASON FOR REFERRAL No Information VITAL SIGNS No information MEDICATIONS Medication SIG (Take, Route, Frequency, Duration) Notes Start Da te End Date Status Lisinopril 20 MG 1 tablet Orally Once a day for 30 Days o n hospital discharge 06/01/21 Active Lexapro 5 MG 1/2 tab Orally Once a day on hospital discharge 06/01/21 May, Active Doxycycline Monohydrate 100 MG 1 capsule Orally bid for 14 day(s ) Jun, Active Potassium Chloride 20 MEQ 1 tablet with food Orally Once a d ay for 30 days on hospital discharge 06/06/21 Active Levothyroxine Sodium 50 MCG 1 tablet in the morning on an empty stomach Orally 3 times week, // for 30 Days on Hospital discharge 06/01/21 Active Simvastatin 20 MG 1 tablet in the evening Orally Once a da y for 30 Days on hospital discharge 06/06/21 Active Vitamin B Complex - as directed Orally on hospital discharge May, Active Xarelto 20 MG 1 tablet with food Orally Once a day for 30 Days on hospital discharge 06/01/21 Active Acetaminophen 325 MG 1 capsule as needed Orally e very 4 hrs as needed for pain or temp 101 for 10 days on hospital discharge 06/01/21 May, Not-Taking Chlorthalidone 25 MG 1/2 tablet in the morning wi th food Orally Once a day for 30 day(s) Active Ketoconazole 2 % 1 application under both breasts Externa lly bid for 14 day(s) Active Levothyroxine Sodium 75 MCG 1 tablet in the morning on an empty stomach Orally 4 x week, sat,,,sat for 30 Days on hospital discharge 06/01/21 Active PROCEDURES No Information RESULTS No Results REASON FOR VISIT Reschedule Appointment Request MEDICAL (GENERAL) HISTORY Type Description Date Medical History celluliltis Medical History mulitple myeloma Medical History hypothyroidism Medical History HTN Medical History O A of Rt. knee on mri c tor n acl , medial meinscal tear of body & post. horn, lateral meniscal tear of post. 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., effusion on MRI 06/2010 Surgical History s/p rotational osteotomy of 1st metatarsal c scre in place on 06/2019 mri of Left foot Goals Section No Information Health Concerns No Information MEDICAL EQUIPMENT No Information MENTAL STATUS No Information FUNCTIONAL STATUS No Information ASSESSMENTS No Information PLAN OF TREATMENT Medication Medication Name Sig Start Date Stop Date Lisinopril 20 MG 1 tablet Orally Once a day for 30 Days Chlorthalidone 25 MG 1/2 tablet in the morning wi th food Orally Once a day for 30 day(s) Ketoconazole 2 % 1 application under both breasts Externa lly bid for 14 day(s) Xarelto 20 MG 1 tablet with food Orally Once a day for 30 Days Doxycycline Monohydrate 100 MG 1 capsule Orally bid for 14 day(s ) Jun, Levothyroxine Sodium 50 MCG 1 tablet in the morning on an empty stomach Orally 3 times week, // for 30 Days Simvastatin 20 MG 1 tablet in the evening Orally Once a day for 30 Days Potassium Chloride 20 MEQ 1 tablet with food Orally Once a day f or 30 days Levothyroxine Sodium 75 MCG 1 tablet in the morning on an empty stomach Orally 4 x week, sat,jason,sat for 30 Days Next Appt Details Provider Name:Corrina Patterson, 2020-09 08:00:00 AM, [address] [facility], , [place], [address], Insurance Providers Payer Name Payer Address Payer Phone Insured Name Patient Relati onship to Insured Coverage Start Date Coverage End Date [employer] [facility] CLAIM DIV [address] [facility] [phone] NEHEMIAS COSME MEDICARE Part A and B [address] [facility] [phone] [phone] NEHEMIAS COSME
--- OUTSIDE RECORDS SUMMARY | 2021-08-22 17:36 | CCD ---
Author Author [facility] Organization [facility] ems Address Unknown Phone Unavailable Care Team Providers Care Litigation Attorney Associate Name Role Phone Corrina Patterson Unavailable PROBLEMS Type Condition ICD9-CM Code [id number] Code Onset Dates Condition S tatus W/U Status Risk SNOMED Code Notes Problem Primary hypertension I10 Active confirmed 07830258 Problem Candidiasis of breast B37.89 Active confirmed 66022834 Problem Mixed hyperlipidemia E78.2 Active confirmed 936900495 Problem Multiple myeloma, remission status unspecified C90 .00 Active confirmed 895908930 Problem H/O deep venous thrombosis Z86.718 Active confirmed 116714568 Problem Memory loss R41.3 Active confirmed 59509063 Problem Acquired hypothyroidism E03.9 Active confirmed 718126334 ALLERGIES Allergen (clinical drug ingredient) Drug/Non Drug Allergy do cumented on EMR Reaction Allergy Type Onset Date Status moxifloxacin Avelox Confusion Drug Allergy Active furosemide Furosemide([facility] Code:[address]-35) presyncope Drug Allergy Active ENCOUNTERS from 1935 to 2021-08-08 Encounter Location Date Provider Diagnosis [address] [phone] [place] [address] Jun, Corrina Patterson Cellulitis of right leg L03. 115 ; Acute pulpitis K04.01 ; H/O deep venous thrombosis Z86.718 ; Multiple myeloma, remission status unspecified C90.00 ; Primary hypertension I10 ; Acquired hypothyroidism E03.9 ; Pre-syncope R55 ; Vasovagal episode R55 ; Mixed hyperlipidemia E78.2 ; Vitamin B12 deficiency E53.8 ; Candidiasis of breast B37.89 ; Pain of right great toe M79.674 ; Memory loss R41.3 and Onychomycosis B35.1 IMMUNIZATIONS No Information SOCIAL HISTORY Tobacco Use: Social History Observation Description Date Details (start date - stop date) Never Smoker Sex Assigned At : Social History Observation Description Sex Assigned At Unknown Education: Question Answer Notes Level of Education: Finished College Language: Question Answer Notes Languages spoken: Maori Alcohol Screening: Question Answer Notes Did you have a drink containing alcohol in the past year? No Points 0 Interpretation Negative Tobacco Use: Question Answer Notes Are you a: never smoker REASON FOR REFERRAL from 1936 to 2021-08-08 Reason 86yocf needs nails trimmed h as MMyeloma, had had chemotherapy, having difficulty keeping nails trim due to hand weakness, pulpitis, needs eval. rx Diagnosis 1 Onychomycosis (B35.1) Referral Organization [facility] Cheryl Referring Provider First Name Corrina Referring Provider Last Name Yesenia Referring Provider Specialty Family Medicine Referred Provider Jose Mujica Referred Provider Specialty Podiatry Referral Priority Routine General Notes Cristina Boyd 07/20/2021 8:20:54 AM > referral faxed VITAL SIGNS Weight 115 lbs Jun, Height 4'11" in Jun, BMI 23.22 kg/m2 Jun, Heart Rate 91 /min Jun, Respiratory Rate 18 /min Jun, Temperature 98.6 degrees Fahrenheit Jun, Oximetry 97 Jun, Blood pressure systolic 122 mm Hg Jun, Blood pressure diastolic 60 mm Hg Jun, MEDICATIONS Medication SIG (Take, Route, Frequency, Duration) Notes Start Da te End Date Status Lisinopril 20 MG 1 tablet Orally Once a day for 30 Days o n hospital discharge 06/01/21 Active Vitamin B Complex - as directed Orally on hospital discharge May, Active Potassium Chloride 20 MEQ 1 tablet with food Orally Once a d ay for 30 days on hospital discharge 06/06/21 Active Lexapro 5 MG 1/2 tab Orally Once a day on hospital discharge 06/01/21 May, Active Doxycycline Monohydrate 100 MG 1 capsule Orally bid for 7 day(s) Jun, Active Simvastatin 20 MG 1 tablet in the evening Orally Once a da y for 30 Days on hospital discharge 06/06/21 Active Levothyroxine Sodium 75 MCG 1 tablet in the morning on an empty stomach Orally 4 x week, sat,,,sat for 30 Days on hospital discharge 06/01/21 Active Xarelto 20 MG 1 tablet with [...] bid for 14 day(s) Active Levothyroxine Sodium 50 MCG 1 tablet in the morning on an empty stomach Orally 3 times week, // for 30 Days on Hospital discharge 06/01/21 Active PROCEDURES from 1936 to 2021-08-08 Procedure Date Ordered Result Body Site Medication: Rocephin 250mg IM (Ceftriaxone) 2021-07-11 N/A RESULTS No Results REASON FOR VISIT 4 Weeks c SS MEDICAL (GENERAL) HISTORY Type Description Date Medical [...] No Information FUNCTIONAL STATUS No Information ASSESSMENTS Encounter Date Diagnosis Assessment Notes Treatment Notes Treatm ent Clinical Notes Jun, Cellulitis of right leg (ICD-10 - L03.115) resolved Jun, Acute pulpitis (ICD-10 - K04.01) Will do rocephin 250mg IM in clinic, doxy to f/u c call back & face time Jun, H/O deep venous thrombosis (ICD-10 - Z86.718) Associated c RUE port cont. xarelto Jun, Multiple myeloma, remission status unspecified ( ICD-10 - C90.00) Following c Dr. Strickland @ [facility] Jun, Primary hypertension (ICD-10 - I10) Jun, Acquired hypothyroidism (ICD-10 - E03.9) Jun, Pre-syncope (ICD-10 - R55) Jun, Vasovagal episode (ICD-10 - R55) Jun, Mixed hyperlipidemia (ICD-10 - E78.2) Jun, Vitamin B12 deficiency (ICD-10 - E53.8) Getting daily b12 inj.s starting today @ [facility] 05/2021 223 vit. b12 Jun, Candidiasis of breast (ICD-10 - B37.89) Jun, Pain of right great toe (ICD-10 - M79.674) Jun, Memory loss (ICD-10 - R41.3) Jun, Onychomycosis (ICD-10 - B35.1) Thickened nails for pod. consult Jun, Other 30" chart revie w, orders, h&p PLAN OF TREATMENT Medication Medication Name Sig [...] Once a day f or 30 days Doxycycline Monohydrate 100 MG 1 capsule Orally bid for 7 day(s) Jun, Simvastatin 20 MG 1 tablet in the evening Orally Once a day for 30 Days Levothyroxine Sodium 75 MCG 1 tablet in the morning on an empty stomach Orally 4 x week, sat,,,sat for 30 Days Levothyroxine Sodium 50 MCG 1 tablet in the morning on an empty stomach Orally 3 times week, // for 30 Days Treatment Notes Assessment Notes Clinical Notes Cellulitis of right leg resolved Acute pulpitis Will do rocephin 250 mg IM in clinic, doxy to f/u c call back & face time H/O deep venous thrombosis Associated c RUE port cont. xarelto Multiple myeloma, remission status unspecified Following c Dr. Strickland @ [facility]. Vitamin B12 deficiency Getting daily b12 inj.s starting today @ [facility]05/2021 223 vit. b12 Onychomycosis Thickened nails for pod. consult Referrals Referral Date Details 86yoc[age] needs nails trimmed h as MMyeloma, had had chemotherapy, having difficulty keeping nails trim due to hand weakness, pulpitis, needs eval. rx, Jose Mujica Next Appt Details 4 Weeks c SS Reason: Provider Name:Corrina Patterson, 2020-09 08:00:00 AM, [address] [facility], , [place], [address], Insurance Providers Payer Name Payer Address Payer Phone Insured Name Patient Relati onship to Insured Coverage Start Date Coverage End Date [employer] [facility] CLAIM DIV [address] [facility] [phone] NEHEMI[employer]ME MEDICARE Part A and B [address] [facility] [phone] [employer]
--- OUTSIDE RECORDS SUMMARY | 2021-08-22 17:36 | CCD ---
Author Author [facility] Organization [facility] ems Address Unknown Phone Unavailable Care Team Providers Care New Car Inspector Name Role Phone Corrina Patterson Unavailable PROBLEMS Type Condition ICD9-CM Code [id number] Code Onset Dates Condition S tatus W/U Status Risk SNOMED Code Notes Problem Primary hypertension I10 Active confirmed 35148568 Problem Candidiasis of breast B37.89 Active confirmed 14702076 Problem Mixed hyperlipidemia E78.2 Active confirmed 605367822 Problem Multiple myeloma, remission status unspecified C90 .00 Active confirmed 006071728 Problem H/O deep venous thrombosis Z86.718 Active confirmed 276276156 Problem Memory loss R41.3 Active confirmed 02127606 Problem Acquired hypothyroidism E03.9 Active confirmed 245378222 ALLERGIES Allergen (clinical drug ingredient) Drug/Non Drug Allergy do cumented on EMR Reaction Allergy Type Onset Date Status moxifloxacin Avelox Confusion Drug Allergy Active furosemide Furosemide([facility] Code:[address]-39) presyncope Drug Allergy Active ENCOUNTERS from 1936 to 2021-06-20 Encounter Location Date Provider Diagnosis [address] [phone] [place] [address] 28 May, 2021 Corrina Patterson Cellulitis of right leg L03. 115 ; H/O deep venous thrombosis Z86.718 ; Multiple myeloma, remission status unspecified C90.00 ; Primary hypertension I10 ; Acquired hypothyroidism E03.9 ; Pre-syncope R55 ; Vasovagal episode R55 ; Mixed hyperlipidemia E78.2 ; Vitamin B12 deficiency E53.8 ; Candidiasis of breast B37.89 ; Pain of right great toe M79.674 and Memory loss R41.3 IMMUNIZATIONS No Information SOCIAL HISTORY Tobacco Use: Social History Observation Description Date Details (start date - stop date) Never Smoker Sex Assigned At : Social History Observation Description Sex Assigned At Unknown Education: Question Answer Notes Level of Education: Finished College Language: Question Answer Notes Languages spoken: Mongolian Alcohol Screening: Question Answer Notes Did you have a drink containing alcohol in the past year? No Points 0 Interpretation Negative Tobacco Use: Question Answer Notes Are you a: never smoker REASON FOR REFERRAL No Information VITAL SIGNS Weight 122 lbs May, Height 4'11" in May, BMI 24.64 kg/m2 May, Heart Rate 94 /min May, Respiratory Rate 18 /min May, Temperature 98.2 degrees Fahrenheit May, Oximetry 99 May, Blood pressure systolic 110 mm Hg May, Blood pressure diastolic 78 mm Hg May, MEDICATIONS Medication SIG (Take, Route, Frequency, Duration) Notes Start Da te End Date Status Lisinopril 20 MG 1 tablet Orally Once a day for 30 Days o n hospital discharge 06/01/21 May, Active Vitamin B Complex - as directed Orally on hospital discharge May, Active Levothyroxine Sodium 50 MCG 1 tablet in the morning on an empty stomach Orally 3 times week, m/w/f for 30 Days on Hospital discharge 06/01/21 May, Active Levothyroxine Sodium 75 MCG 1 tablet in the morning on an empty stomach Orally 4 x week, sat,,,sat for 30 Days on hospital discharge 06/01/21 May, Active Potassium Chloride 20 MEQ 1 tablet with food Orally Once a d ay for 30 days on hospital discharge 06/06/21 May, Active Xarelto 20 MG 1 tablet with food Orally Once a day for 30 Days on hospital discharge 06/01/21 May, Active Lexapro 5 MG 1 tablet Orally Once a day for 30 day(s) on hospital discharge 06/01/21 May, Active Acetaminophen 325 MG 1 capsule as needed Orally e very 4 hrs as needed for pain or temp 101 for 10 days on hospital discharge 06/01/21 May, Not-Taking Simvastatin 20 MG 1 tablet in the evening Orally Once a da y for 30 Days on hospital discharge 06/06/21 May, Active Chlorthalidone 25 MG 1/2 tablet in the morning wi th food Orally Once a day for 30 day(s) May, Active Ketoconazole 2 % 1 application under both breasts Externa lly bid for 14 day(s) May, Active PROCEDURES No Information RESULTS No Results REASON FOR VISIT EDUCATION TRAINER TCM/ACO [facility], d/c 06/02, cellulitis of RLL MEDICAL (GENERAL) HISTORY Type Description Date Medical [...] Notes Treatment Notes Treatm ent Clinical Notes May, Cellulitis of right leg (ICD-10 - L03.115) May, H/O deep venous thrombosis (ICD-10 - Z86.718) Associated c RUE port cont. xarelto May, Multiple myeloma, remission status unspecified ( ICD-10 - C90.00) May, Primary hypertension (ICD-10 - I10) May, Acquired hypothyroidism (ICD-10 - E03.9) May, Pre-syncope (ICD-10 - R55) May, Vasovagal episode (ICD-10 - R55) May, Mixed hyperlipidemia (ICD-10 - E78.2) May, Vitamin B12 deficiency (ICD-10 - E53.8) Getting daily b12 inj.s starting today @ [facility]. 05/2021 223 vit. b12 May, Candidiasis of breast (ICD-10 - B37.89) May, Pain of right great toe (ICD-10 - M79.674) 28 Sep, 2021 Memory loss (ICD-10 - R41.3) May, Other 60" chart revbreanna w, orders, h&p, plan, ROInfo. forms, meds., dx's new pt., all.s PLAN OF TREATMENT Medication Medication Name Sig Start Date Stop Date Lisinopril 20 MG 1 tablet Orally Once a day for 30 Days May, Simvastatin 20 MG 1 tablet in the evening Orally Once a da y for 30 Days May, Xarelto 20 MG 1 tablet with food Orally Once a day for 30 Days May, Chlorthalidone 25 MG 1/2 tablet in the morning wi th food Orally Once a day for 30 day(s) May, Levothyroxine Sodium 50 MCG 1 tablet in the morning on an empty stomach Orally 3 times week, // for 30 Days May, Ketoconazole 2 % 1 application under both breasts Externa lly bid for 14 day(s) May, Potassium Chloride 20 MEQ 1 tablet with food Orally Once a d ay for 30 days May, Levothyroxine Sodium 75 MCG 1 tablet in the morning on an empty stomach Orally 4 x week, sun,,,sat for 30 Days May, Vitamin B Complex - as directed Orally May, Treatment Notes Assessment Notes Clinical Notes H/O deep venous thrombosis Associated c RUE port cont. xarelto Vitamin B12 deficiency Getting daily b12 inj.s starting today @ [facility]05/2021 223 vit. b12 Future Test Test Name Order Date Comprehensive Metabolic Profile (CMP) [id number] CBC with Differential [id number] URIC ACID [id number] Next Appt Details 4 Weeks c SS Reason: Provider Name:Corrina Patterson, 2020-09 10:30:00 AM, [address] [facility], , [place], [address], Insurance Providers Payer Name Payer Address Payer Phone Insured Name Patient Relati onship to Insured Coverage Start Date Coverage End Date MEDICARE Part A and B [address] [facility] [phone] [employer] [facility] [facility] CLAIM DIV [address] [facility] [phone] [employer]ME self
--- OUTSIDE RECORDS SUMMARY | 2021-08-22 17:37 | CCD ---
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 Role Phone Maring, Chato PA Unavailable Unavailable Maring, Chato PA Unavailable Unavailable Maring, Chato PA Unavailable Unavailable Maring, Chato PA Unavailable Unavailable Maring, Chato PA Unavailable Unavailable Maring, Chato PA Unavailable Unavailable Maring, Chato PA Unavailable Unavailable Maring, Chato PA Unavailable Unavailable Maring, Chato PA Unavailable Unavailable Maring, Chato PA Unavailable Unavailable Maring, Chato PA Unavailable Unavailable Maring, Chato PA Unavailable Unavailable Maring, Chato PA Unavailable Unavailable Maring, Chato PA Unavailable Unavailable Maring, Chato PA Unavailable Unavailable Maring, Chato PA Unavailable Unavailable GARCIA, G EDWARD RPA Unavailable Unavailable GARCIA, G EDWARD RPA Unavailable Unavailable GARCIA, G EDWARD RPA Unavailable Unavailable GARCIA, G EDWARD RPA Unavailable Unavailable GARCIA, G EDWARD RPA Unavailable Unavailable GARCIA, G EDWARD RPA Unavailable Unavailable GARCIA, G EDWARD RPA Unavailable Unavailable GARCIA, G EDWARD RPA Unavailable Unavailable GARCIA, G EDWARD RPA Unavailable Unavailable GARCIA, G EDWARD RPA Unavailable Unavailable GARCIA, G EDWARD RPA Unavailable Unavailable GARCIA, G EDWARD RPA Unavailable Unavailable GARCIA, G EDWARD RPA Unavailable Unavailable GARCIA, G EDWARD RPA Unavailable Unavailable GARCIA, G EDWARD RPA Unavailable Unavailable GARCIA, G EDWARD RPA Unavailable Unavailable GARCIA, G EDWARD RPA Unavailable Unavailable GARCIA, G EDWARD RPA Unavailable Unavailable GARCIA, G EDWARD RPA Unavailable Unavailable GARCIA, G EDWARD RPA Unavailable Unavailable GARCIA, G EDWARD RPA Unavailable Unavailable GARCIA, G EDWARD RPA Unavailable Unavailable GARCIA, G EDWARD RPA Unavailable Unavailable GARCIA, G EDWARD RPA Unavailable Unavailable GARCIA, G EDWARD RPA Unavailable Unavailable GARCIA, G EDWARD RPA Unavailable Unavailable GARCIA, G EDWARD RPA Unavailable Unavailable GRACIA, G EDWARD RPA Unavailable Unavailable GARCIA, G EDWARD RPA Unavailable Unavailable GARCIA, G EDWARD RPA Unavailable Unavailable GARCIA, G EDWARD RPA Unavailable Unavailable GARCIA, G EDWARD RPA Unavailable Unavailable GARCIA, G EDWARD RPA Unavailable Unavailable GARCIA, G EDWARD RPA Unavailable Unavailable GARCIA, G EDWARD RPA Unavailable Unavailable GARCIA, G EDWARD RPA Unavailable Unavailable GARCIA, G EDWARD RPA Unavailable Unavailable Re-disclosure Warning The records that you are about to access may contain information from federally-assisted alcohol or drug abuse programs. If such information is present, then the following federally mandated warning applies: This information has been disclosed to you from records protected by federal confidentiality rules (42 CFR part 2). The federal rules prohibit you from making any further disclosure of this information unless further disclosure is expressly permitted by the written consent of the person to whom it pertains or as otherwise permitted by 42 CFR part 2. A general authorization for the release of medical or other information is NOT sufficient for this purpose. The Federal rules restrict any use of the information to criminally investigate or prosecute any alcohol or drug abuse patient.The records that you are about to access may contain highly sensitive health information, the redisclosure of which is protected by Article 27-F of the [facility] Public Health law. If you continue you may have access to information: Regarding HIV / AIDS; Provided by facilities licensed or operated by the [facility] Office of Mental Health; or Provided by the [facility] Office for People With Developmental Disabilities. If such information is present, then the following [facility] mandated warning applies: This information has been disclosed to you from confidential records which are protected by state law. State law prohibits you from making any further disclosure of this information without the specific written consent of the person to whom it pertains, or as otherwise permitted by law. Any unauthorized further disclosure in violation of state law may result in a fine or skilled nursing sentence or both. A general authorization for the release of medical or other information is NOT sufficient authorization for further disc losure. Encounters Encounter Providers Location Date Indications Data Source(s ) Unknown [address] [place], [facility] [id number] 07/17/2021 12:00:00 AM EDT eCW1 ([facility]) Outpatient [address] [place], [facility] [id number] 07/11/2021 12:00:00 AM EDT eCW1 ([facility]) (TCM) Transition of Care Visit [address] [place] [address] 06/13/2021 12:00:00 AM EDT eCW1 ([facility]) Outpatient Attender: Chato HU 05/30/20 05:58:56 PM EDT - 05/30/2021 06:40:12 PM EDT [facility] ([facility] ) Outpatient Attender: ROSALVA GARCIA RPA 05/19 07:36:05 PM EDT - 05/19/2021 10:20:28 PM EDT [facility] ([facility] ) Medications Medication Brand Name Start Date Product Form Dose Route Admi nistrative Instructions Pharmacy Instructions Status Indications Reaction Description Data Source(s) Doxycycline Monohydrate 100 MG Oral Capsule Doxycycline Jewell hydrate 100 MG 07/11/2021 12:00:00 AM EDT 1.0 {capsule} active Doxycycline Monohydrate 100 MG eCW1 ([facility]) Doxycycline Monohydrate 100 MG Oral Capsule Doxycycline Jewell hydrate 100 MG 07/11/2021 12:00:00 AM EDT 1.0 {capsule} active Doxycycline Monohydrate 100 MG eCW1 ([facility]) Chlorthalidone 25 MG Oral Tablet Chlorthalidone 25 MG 2020 12:00:00 AM EDT active Chlorthalidone 25 MG eCW1 ([facility]) Ketoconazole 20 MG/ML Topical Cream Ketoconazole 2 % Ketocon azole 2 % 06/13/2021 12:00:00 AM EDT active Ketocona zole 2 % eCW1 ([facility]) Levothyroxine Sodium 0.05 MG Oral Tablet Levothyroxine Sodium 50 MCG Levothyroxine Sodium 50 MCG 06/01/2021 12:00:00 AM EDT active Levothyroxine Sodium 50 MCG eCW1 ([facility]) Escitalopram 5 MG Oral Tablet [Lexapro] Lexapro 5 MG Lexapro 5 MG 06/01/2021 12:00:00 AM EDT active Lexapro 5 MG eCW1 ([facility]) Escitalopram 5 MG Oral Tablet [Lexapro] Lexapro 5 MG Lexapro 5 MG 06/01/2021 12:00:00 AM EDT active Lexapro 5 MG eCW1 ([facility]) Vitamin B Complex - Vitamin B Complex - 06/01/2021 12:00:00 AM EDT active Vitamin B Complex - eCW1 ([facility]) Acetaminophen 325 MG UNK 06/01/2021 12:00:00 AM EDT 1. 0 {capsule_as_needed} suspended Acetaminophen 325 MG eCW1 ([facility]) Potassium Chloride 20 MEQ UNK 06/01/2021 12:00:00 AM EDT 1.0 {tablet_with_food} active Potassium Chl oride 20 MEQ eCW1 ([facility]) Levothyroxine Sodium 0.075 MG Oral Tablet Levothyroxin e Sodium 75 MCG Levothyroxine Sodium 75 MCG 06/01/2021 12:00:00 AM EDT active Levothyroxine Sodium 75 MCG eCW1 ([facility]) Lisinopril 20 MG Oral Tablet Lisinopril 20 MG 06/01/2021 12:00:00 A M EDT 1.0 {tablet} active Lisinopril 20 MG eCW1 ( [facility]) Vitamin B Complex - Vitamin B Complex - 06/01/2021 12:00:00 AM EDT active Vitamin B Complex - eCW1 ([facility]) Simvastatin 20 MG Oral Tablet Simvastatin 20 MG 06/01/2021 12:00:00 AM EDT 1.0 {tablet_in_the_evening} active Simvast atin 20 MG eCW1 ([facility]) Acetaminophen 325 MG UNK 06/01/2021 12:00:00 AM EDT 1. 0 {capsule_as_needed} suspended Acetaminophen 325 MG eCW1 ([facility]) Acetaminophen 325 MG UNK 06/01/2021 12:00:00 AM EDT 1. 0 {capsule_as_needed} suspended Acetaminophen 325 MG eCW1 ([facility]) Vitamin B Complex - Vitamin B Complex - 06/01/2021 12:00:00 AM EDT active Vitamin B Complex - eCW1 ([facility]) Escitalopram 5 MG Oral Tablet [Lexapro] Lexapro 5 MG Lexapro 5 MG 06/01/2021 12:00:00 AM EDT 1.0 {tablet} active Le xapro 5 MG eCW1 ([facility]) rivaroxaban 20 MG Oral Tablet [Xarelto] Xarelto 20 MG Xarelt o 20 MG 06/01/2021 12:00:00 AM EDT 1.0 {tablet_with_food} active Xarelto 20 MG eCW1 ([facility]) Insurance Providers Payer name Policy type / Coverage type Policy ID Covered alliance party ID Covered alliance party's relationship to chu Policy Chu Plan Information [facility] [employer] [id number] Self [id number] [place] Medicare Part B [id number] Self [id number] RPR- Needs Payer Match [id number] Other [id number] MEDICARE [id number] SP [id number] [facility] OPTIONS [id number] SP [id number] MEDICARE [id number] SP [id number] W16 Problems, Conditions, and Diagnoses Code Display Name Description Problem Type Effective Dates Data Source(s) R41.3 [id number] Memory loss Problem 06/19/2021 12:00:00 AM E DT eCW1 ([facility]) E03.9 [id number] Acquired hypothyroidism Problem 06/13/2021 1 2:00:00 AM EDT eCW1 ([facility]) Z86.718 [id number] H/O deep venous thrombosis Problem 12:00:00 AM EDT eCW1 ([facility]) C90.00 [id number] Multiple myeloma, remission status unspec ified Problem 06/13/2021 12:00:00 AM EDT eCW1 ([facility]) E78.2 [id number] Mixed hyperlipidemia Problem 06/13/2021 12:0 0:00 AM EDT eCW1 ([facility]) B37.89 [id number] Candidiasis of breast Problem 06/13/2021 12: 00:00 AM EDT eCW1 ([facility]) I10 [id number] Primary hypertension Problem 06/13/2021 12:0 0:00 AM EDT eCW1 ([facility]) Surgeries/Procedures Procedure Description Date Indications Data Source(s) Medication: Rocephin 250mg IM (Ceftriaxone) 07/11/2021 12:00:00 AM EDT eCW1 ([facility]) Results ID Date Data Source [id number] 05/31/2021 12:15:00 AM EDT [facility] Name Value Range Interpretation Code Description Data Lisbet rce(s) Supporting Document(s) SARS coronavirus 2 RNA [Presence] in Res piratory specimen by SORAIDA with probe detection NEGATIVE [facility] This lab was ordered by [facility] a nd reported by [facility]. Procedure Social History Code Duration Value Status Description Data Source(s ) Smoking 07/11/2021 12:00:00 AM EDT Never Smoker completed Never S moker eCW1 ([facility]) Smoking 07/11/2021 12:00:00 AM EDT Never Smoker completed Never S moker eCW1 ([facility]) Smoking 06/19/2021 12:00:00 AM EDT Never Smoker completed Never S moker eCW1 ([facility]) Vital Signs ID Date Data Source UNK Name Value Range Interpretation Code Description Data Source(s) Body weight 115 [lb_av] 115 [lb_av] eCW1 ([facility]) Body height [in_i] eCW1 ([facility]) Body mass index (BMI) [Ratio] 23.22 kg/m2 23.22 kg/m2 eCW1 ([facility]) Heart rate 91 /min 91 /min eCW1 ([facility]) Respiratory rate 18 /min 18 /min eCW1 ([facility]) Body temperature 98.6 [degF] 98.6 [degF] eCW1 ( [facility]) Systolic blood pressure 122 mm[Hg] 122 mm[Hg] e CW1 ([facility]) Diastolic blood pressure 60 mm[Hg] 60 mm[Hg] eCW1 ([facility]) Body weight 122 [lb_av] 122 [lb_av] eCW1 ([facility]) Body height [in_i] eCW1 ([facility]) Body mass index (BMI) [Ratio] 24.64 kg/m2 24.64 kg/m2 eCW1 ([facility]) Heart rate 94 /min 94 /min eCW1 ([facility]) Respiratory rate 18 /min 18 /min eCW1 ([facility]) Body temperature 98.2 [degF] 98.2 [degF] eCW1 ( [facility]) Systolic blood pressure 110 mm[Hg] 110 mm[Hg] e CW1 ([facility]) Diastolic blood pressure 78 mm[Hg] 78 mm[Hg] eCW1 ([facility]) Patient Treatment Plan of Care Planned Activity Planned Date Details Description Data Source (s) Doxycycline Monohydrate 100 MG Oral Capsule 07/11/2021 12:00:00 AM EDT eCW1 ([facility]) Doxycycline Monohydrate 100 MG Oral Capsule 07/11/2021 12:00:00 AM EDT eCW1 ([facility]) Ketoconazole 20 MG/ML Topical Cream 06/13/2021 12:00:00 AM EDT eCW1 ([facility]) Chlorthalidone 25 MG Oral Tablet 06/13/2021 12:00:00 AM EDT eCW1 ([facility]) Simvastatin 20 MG Oral Tablet 06/01/2021 12:00:00 AM EDT eCW1 ([facility]) rivaroxaban 20 MG Oral Tablet [Xarelto] 06/01/2021 12:00:00 AM EDT eCW1 ([facility]) Potassium Chloride 20 MEQ 06/01/2021 12:00:00 AM EDT eCW1 ([facility]) Levothyroxine Sodium 0.075 MG Oral Tablet 06/01/2021 12:00:00 AM ED T eCW1 ([facility]) Levothyroxine Sodium 0.05 MG Oral Tablet 06/01/2021 12:00:00 AM EDT eCW1 ([facility]) Vitamin B Complex - 06/01/2021 12:00:00 AM EDT eCW1 ([facility]) Lisinopril 20 MG Oral Tablet 06/01/2021 12:00:00 AM EDT eCW1 ([facility])
--- NOTE | 2021-08-22 18:26 | REPVR ---
PROCEDURE INFORMATION: Exam: CT Abdomen And Pelvis With Contrast Exam date and time: 08/22/2021 5:46 PM Age: 86 years old Clinical indication: Abdominal pain; Localized; Right; Additional info: R sided abd pain, vomiting TECHNIQUE: Imaging protocol: Computed tomography of the abdomen and pelvis with contrast. Radiation optimization: All CT scans at this facility use at least one of these dose optimization techniques: automated exposure control; mA and/or kV adjustment per patient size (includes targeted exams where dose is matched to clinical indication); or iterative reconstruction. Contrast material: ISOVUE 370; Contrast volume: 100 ml; Contrast route: INTRAVENOUS (IV); COMPARISON: CR Chest, 1 view 08/22/2021 4:05 PM FINDINGS: Lungs: No suspicious mass or airspace process in the visualized lung bases. Diaphragm: Small hiatal hernia is present. Liver: Liver appears normal with no focal abnormality. Gallbladder and bile ducts: Gallbladder is present and shows no evidence of gallstone. Pancreas: Pancreas appears normal. No focal mass or peripancreatic inflammation. Spleen: Spleen appears homogeneous without focal mass. Adrenal glands: Adrenal glands are normal in appearance. Kidneys and ureters: Kidneys are unremarkable aside from an upper pole simple fluid density 8 mm benign left renal cyst which does not require follow-up. Stomach and bowel: Diverticular changes are present within the colon without inflammation. Rectosigmoid colon is distended to 7 cm diameter with desiccated stool. Appendix: Appendix is not seen. No RLQ inflammation to suggest appendicitis. Intraperitoneal space: Mesenteric edema is present within the right mid and lower abdomen and there are fluid-filled prominent bowel loops measuring up to 3 cm suggesting a focal bowel obstruction. This could be secondary to an internal hernia given its appearance and focality. Coronal images suggest an internal hernia. Small volume of abdominal and pelvic free fluid is present. No pneumoperitoneum. Vasculature: Atherosclerotic calcifications in the coronary vessels. Atherosclerotic change present in the aorta, without aneurysm. Main portal and splenic veins enhance normally. Lymph nodes: No enlarged lymph nodes. Urinary bladder: Urinary bladder appears normal. Reproductive: Uterus is surgically absent. Bones/joints: Thoracic and lumbar spine and SI joint degenerative changes are present. No destructive osseous process. Soft tissues: See "Intraperitoneal space" finding. IMPRESSION: Findings are concerning for a small bowel obstruction in the right lower quadrant with bowel loops measuring up to 3 cm in size, with mesenteric edema and the findings suggest the possibility of an internal hernia. I do not see ischemic changes at this point although small bowel volvulus would be in the differential given the appearance Electronically signed by: Trevor España On 08/22/2021 18:26:25 PM
[2021-08-22] MEDS: LR 1,000 ML IV SCH ×2 (19:45→23:48)
--- NOTE | 2021-08-22 20:02 | REP ---
INDICATION: NG placement. COMPARISON: [employer] image for CT abdomen and pelvis of 08/22/2021. TECHNIQUE: AP supine image of the abdomen was obtained. FINDINGS: There is intravenous contrast in both renal collecting systems and the urinary bladder. The nasogastric tube tip appears to be in the proximal stomach with the side port in the distal esophagus. Bowel gas pattern is unremarkable. IMPRESSION: Nasogastric tube tip is in the area of the proximal stomach with the side port in the area of the distal esophagus. <Electronically signed by Jerry Orourke > 08/22/211957
--- OUTSIDE RECORDS SUMMARY | 2021-08-22 22:46 | CCD ---
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 If you continue you may have access to information: Regarding HIV / AIDS; Provided by facilities licensed or operated by the [facility] Office of Mental Health; or Provided by the [facility] Office for People With Developmental Disabilities. If such information is present, then the following [facility] mandated warning applies: This information has been [...] law may result in a fine or retirement sentence or both. A general authorization for the release of medical or other information is NOT sufficient authorization for further disc losure. Encounters Encounter Providers Location Date Indications Data Source(s ) Unknown [address] [facility], [facility] [address] 07/17/2021 12:00:00 AM EDT eCW1 ([facility]) Outpatient [address], [facility] [id number] 07/11/2021 12:00:00 AM EDT eCW1 ([facility]) (TCM) Transition of Care Visit [address] [place] [address] 06/13/2021 12:00:00 AM EDT eCW1 ([facility]) Outpatient Attender: Chato HU 05/30/20 05:58:56 PM EDT - 05/30/2021 06:40:12 PM EDT DocuTap ([facility] ) Outpatient Attender: ROSALVA GARCIA RPA 05/19 07:36:05 PM EDT - 05/19/2021 10:20:28 PM EDT [facility] ([facility] ) Medications Medication Brand Name Start Date Product Form Dose Route Admi nistrative Instructions Pharmacy Instructions Status Indications Reaction Description Data Source(s) Doxycycline Monohydrate 100 MG Oral Capsule Doxycycline [place] hydrate 100 MG 07/11/2021 12:00:00 AM EDT 1.0 {capsule} active Doxycycline Monohydrate 100 MG eCW1 ([facility]) Doxycycline Monohydrate 100 MG Oral Capsule Doxycycline [place] hydrate 100 MG 07/11/2021 12:00:00 AM EDT 1.0 {capsule} active Doxycycline Monohydrate 100 MG eCW1 ([facility]) Chlorthalidone 25 MG Oral Tablet Chlorthalidone 25 MG 2020 12:00:00 AM EDT active Chlorthalidone 25 MG eCW1 ([facility]) Ketoconazole 20 MG/ML Topical Cream Ketoconazole 2 % Ketocon azole 2 % 06/13/2021 12:00:00 AM EDT active Ketocona zole 2 % eCW1 ([facility]) Levothyroxine Sodium 0.05 MG Oral Tablet Levothyroxine Sodium 50 MCG Levothyroxine Sodium 50 MCG 06/01/2021 12:00:00 AM EDT active Levothyroxine Sodium 50 MCG eCW1 ([facility]) Escitalopram 5 MG Oral Tablet [Lexapro] Lexapro 5 MG Lexapro 5 MG 06/01/2021 12:00:00 AM EDT active Lexapro 5 MG eCW1 ([facility]) Escitalopram 5 MG Oral Tablet [Lexapro] Lexapro 5 MG Lexapro 5 MG 06/01/2021 12:00:00 AM EDT active Lexapro 5 MG eCW1 ([facility]) Vitamin B Complex - Vitamin B Complex - 06/01/2021 12:00:00 AM EDT active Vitamin B Complex - eCW1 ([facility]) Acetaminophen 325 MG UNK 06/01/2021 12:00:00 AM EDT 1. 0 {capsule_as_needed} suspended Acetaminophen 325 MG eCW1 ([facility]) Potassium Chloride 20 MEQ UNK 06/01/2021 12:00:00 AM EDT 1.0 {tablet_with_food} active Potassium Chl oride 20 MEQ eCW1 ([facility]) Levothyroxine Sodium 0.075 MG Oral Tablet Levothyroxin e Sodium 75 MCG Levothyroxine Sodium 75 MCG 06/01/2021 12:00:00 AM EDT active Levothyroxine Sodium 75 MCG eCW1 ([facility]) Lisinopril 20 MG Oral Tablet Lisinopril 20 MG 06/01/2021 12:00:00 A M EDT 1.0 {tablet} active Lisinopril 20 MG eCW1 ( [facility]) Vitamin B Complex - Vitamin B Complex - 06/01/2021 12:00:00 AM EDT active Vitamin B Complex - eCW1 ([facility]) Simvastatin 20 MG Oral Tablet Simvastatin 20 MG 06/01/2021 12:00:00 AM EDT 1.0 {tablet_in_the_evening} active Simvast atin 20 MG eCW1 ([facility]) Acetaminophen 325 MG UNK 06/01/2021 12:00:00 AM EDT 1. 0 {capsule_as_needed} suspended Acetaminophen 325 MG eCW1 ([facility]) Acetaminophen 325 MG UNK 06/01/2021 12:00:00 AM EDT 1. 0 {capsule_as_needed} suspended Acetaminophen 325 MG eCW1 ([facility]) Vitamin B Complex - Vitamin B Complex - 06/01/2021 12:00:00 AM EDT active Vitamin B Complex - eCW1 ([facility]) Escitalopram 5 MG Oral Tablet [Lexapro] Lexapro 5 MG Lexapro 5 MG 06/01/2021 12:00:00 AM EDT 1.0 {tablet} active Le xapro 5 MG eCW1 ([facility]) rivaroxaban 20 MG Oral Tablet [Xarelto] Xarelto 20 MG Xarelt o 20 MG 06/01/2021 12:00:00 AM EDT 1.0 {tablet_with_food} active Xarelto 20 MG eCW1 ([facility]) Insurance Providers Payer name Policy type / Coverage type Policy ID Covered constitution party ID Covered constitution party's relationship to chu Policy Chu Plan Information [facility] [employer] [id number] Self [id number] [place] Medicare Part B [id number] Self [id number] RPR- Needs Payer Match [id number] Other [id number] MEDICARE [id number] SP [id number] [facility] HEALTH CARE OPTIONS [id number] SP [id number] MEDICARE [id number] SP [id number] Problems, Conditions, and Diagnoses Code Display Name Description Problem Type Effective Dates Data Source(s) R41.3 [id number] Memory loss Problem 06/19/2021 12:00:00 AM E DT eCW1 ([facility]) E03.9 [id number] Acquired hypothyroidism Problem 06/13/2021 1 2:00:00 AM EDT eCW1 ([facility]) Z86.718 [id number] H/O deep venous thrombosis Problem 12:00:00 AM EDT eCW1 ([facility]) C90.00 [id number] Multiple myeloma, remission status unspec ified Problem 06/13/2021 12:00:00 AM EDT eCW1 ([facility]) E78.2 [id number] Mixed hyperlipidemia Problem 06/13/2021 12:0 0:00 AM EDT eCW1 ([facility]) B37.89 [id number] Candidiasis of breast Problem 06/13/2021 12: 00:00 AM EDT eCW1 ([facility]) I10 [id number] Primary hypertension Problem 06/13/2021 12:0 0:00 AM EDT eCW1 ([facility]) Surgeries/Procedures Procedure Description Date Indications Data Source(s) Medication: Rocephin 250mg IM (Ceftriaxone) 07/11/2021 12:00:00 AM EDT eCW1 ([facility]) Results ID Date Data Source [id number] 05/31/2021 12:15:00 AM EDT [place] Name Value Range Interpretation Code Description Data Lisbet rce(s) Supporting Document(s) SARS coronavirus 2 RNA [Presence] in Res piratory specimen by SORAIDA with probe detection NEGATIVE [facility] This lab was ordered by [facility] a nd reported by [facility]. Procedure Social History Code Duration Value Status Description Data Source(s ) Smoking 07/11/2021 12:00:00 AM EDT Never Smoker completed Never S moker eCW1 ([facility]) Smoking 07/11/2021 12:00:00 AM EDT Never Smoker completed Never S moker eCW1 ([facility]) Smoking 06/19/2021 12:00:00 AM EDT Never Smoker completed Never S moker eCW1 ([facility]) Vital Signs ID Date Data Source UNK Name Value Range Interpretation Code Description Data Source(s) Body weight 115 [lb_av] 115 [lb_av] eCW1 ([facility]) Body height [in_i] eCW1 ([facility]) Body mass index (BMI) [Ratio] 23.22 kg/m2 23.22 kg/m2 eCW1 ([facility]) Heart rate 91 /min 91 /min eCW1 ([facility]) Respiratory rate 18 /min 18 /min eCW1 ([facility]) Body temperature 98.6 [degF] 98.6 [degF] eCW1 ( [facility]) Systolic blood pressure 122 mm[Hg] 122 mm[Hg] e CW1 ([facility]) Diastolic blood pressure 60 mm[Hg] 60 mm[Hg] eCW1 ([facility]) Body weight 122 [lb_av] 122 [lb_av] eCW1 ([facility]) Body height [in_i] eCW1 ([facility]) Body mass index (BMI) [Ratio] 24.64 kg/m2 24.64 kg/m2 eCW1 ([facility]) Heart rate 94 /min 94 /min eCW1 ([facility]) Respiratory rate 18 /min 18 /min eCW1 ([facility]) Body temperature 98.2 [degF] 98.2 [degF] eCW1 ( [facility]) Systolic blood pressure 110 mm[Hg] 110 mm[Hg] e CW1 ([facility]) Diastolic blood pressure 78 mm[Hg] 78 mm[Hg] eCW1 ([facility]) Patient Treatment Plan of Care Planned Activity Planned Date Details Description Data Source (s) Doxycycline Monohydrate 100 MG Oral Capsule 07/11/2021 12:00:00 AM EDT eCW1 ([facility]) Doxycycline Monohydrate 100 MG Oral Capsule 07/11/2021 12:00:00 AM EDT eCW1 ([facility]) Ketoconazole 20 MG/ML Topical Cream 06/13/2021 12:00:00 AM EDT eCW1 ([facility]) Chlorthalidone 25 MG Oral Tablet 06/13/2021 12:00:00 AM EDT eCW1 ([facility]) Simvastatin 20 MG Oral Tablet 06/01/2021 12:00:00 AM EDT eCW1 ([facility]) rivaroxaban 20 MG Oral Tablet [Xarelto] 06/01/2021 12:00:00 AM EDT eCW1 ([facility]) Potassium Chloride 20 MEQ 06/01/2021 12:00:00 AM EDT eCW1 ([facility]) Levothyroxine Sodium 0.075 MG Oral Tablet 06/01/2021 12:00:00 AM ED T eCW1 ([facility]) Levothyroxine Sodium 0.05 MG Oral Tablet 06/01/2021 12:00:00 AM EDT eCW1 ([facility]) Vitamin B Complex - 06/01/2021 12:00:00 AM EDT eCW1 ([facility]) Lisinopril 20 MG Oral Tablet 06/01/2021 12:00:00 AM EDT eCW1 ([facility])
--- NOTE | 2021-08-22 23:10 | HPEPDOC ---
[facility] Medical History & Physical Date of Admission Aug 22, 2021 Date of Service: Aug 22, 2021 History and Physical CHIEF COMPLAINT: abdominal pain HISTORY OF PRESENT ILLNESS: Mrs. Bassett is a pleasant 86F, with a PMHx of mu ltiple myeloma, essential hypertension, hypothyroidism, left upper extremity DVT associated with port, mild cognitive impairment. She presented this afternoon with her granddaughter after she developed severe 10/10 abdominal pain associated with vomiting after eating dinner. Patient has felt well prior to this and was able to run several errands. Patient states that her last bowel movement was 2 days ago. She is currently not passing gas. CT imaging in the ER was suggestive of small bowel obstruction versus volvulus. Imaging was reviewed by Dr. Buchanan who has also examined the patient. Nasogastric tube was inserted in the ER for treatment decompress the stomach after which patient felt significant improvement. Patient states her abdominal pain is improved and she no longer has to vomit. She she denies any chest pain shortness of breath palpitations fevers or chills. She denies melena. At this point patient states that she is a DNR/DNI and does not want to be resuscitated. I also reviewed her medical oncology notes from 08/22/2021 which is indicated with patient has decl ined further chemotherapy and is currently working with hospice and is pursuing comfort measures. I discussed this further with patient who appears to be quite somnolent and tired. She directed me to continuous conversation with her granddaughter and healthcare proxy Yanna Beal. I spoke with Ms. Beal at [phone]. She reaffirmed her grandmother's wishes for DNR/DNI status. She feels that comfort measures are in keeping with her grandmothers wishes for goals of care. She states that she will likely make the decision for comfort measures tomorrow morning but would like another opportunity to discuss this with her grandmother. We have agreed for the time being to continue the nasogastric tube but that she would not pursue surgery or invasive testing. PAST MEDICAL AND SURGICAL HISTORY: HTN Hypothyroidism Multiple Myeloma LUE DVT related to chemo port, on xarelto. Chemo port placement, RUE SOCIAL HISTORY: Non smoker, non drinker. Lives with granddaughter. FAMILY HISTORY: Reviewed with patient; no pertinent history was provided. ALLERGIES: Please see below. REVIEW OF SYSTEMS: 10 point ROS conducted, relevant findings noted in HPI. HOME MEDICATIONS: Please see below. PHYSICAL EXAMINATION: VITAL SIGNS: please see below General: NAD, comfortable, significantly deconditioned, debilitated. HEENT: PERRLA, EOMI, sclerae clear Neck: supple, normal ROM, no JVD Respiratory: lungs CTAB, no wheeze, no rales, no crackles CVS: RRR, normal S1, S2, no murmurs Abdo: mildly distended, NGT in place, 5/10 pain to palpation mid epigastrium Extremities: no edema, pulses 2+ MSK: no joint deformities, normal ROM Neuro: no focal neuro deficits, moving all 4 extremities, CN2-12 intact. Strength 4/5 in all 4 extremities, profound generalized weakness. No nystagmus. Psych: calm, cooperative, AAO x 2-3 LABORATORY DATA: See below. IMAGING: CT (08/22/21): Findings are concerning for a small bowel obstruction in the right lower quadrant with bowel loops measuring up to 3 cm in size, with mesenteric edema and the findings suggest the possibility of an internal hernia. I do not see ischemic changes at this point although small bowel volvulus would be in the differential given the appearance. CXR (08/22/21): No acute pulmonary disease. KUB (08/22/21): Nasogastric tube tip is in the area of the proximal stomach with the side port in the area of the distal esophagus. MICROBIOLOGY: Please see below. ASSESSMENT: Mrs. Bassett is a pleasant 86F, with a PMHx of multiple myeloma, ess ential hypertension, hypothyroidism, left upper extremity DVT associated with port, mild cognitive impairment. She is being admitted for abdominal pain, thought to be 2/[address] findings are suggestive of ischemia on differential, patient's clinical picture is not strongly suggestive of mese nteric ischemia per Dr. Buchanan. She will be managed conservatively with an NGT to suction at this time. Patient has expressed her wishes to avoid invasive diagnostic studies. She is a poor surgical candidate. Her granddaughter Yanna Beal wishes to be present for a GOC discussion in the morning. Family has been working on hospice for the patient given her advanced MM, and wishes to stop treatment. . PLAN: #abdominal pain 2/2 SBO - CT findings reviewed above - D/w Dr. Buchanan - low suspicion for mesenteric ischemia. - etiology of SBO is unclear. Possible adhesions vs internal hernia However, given ascites, and small bowel edema, it possible that a malignant process could be a culprit - patient does not wish for invasive testing - she does not wish for surgery - continue with NGT for now, as is providing significant relief in abdominal pain - ordered repeat KUB in am - NPO. IVF ordered. - to continue GOC discussion with granddaughter Yanna in am. Will likely choose to proceed with [facility]. LUE DVT 2/2 port placement - patient takes xarelto at home, last dose 08/21/21 - will hold xarelto in the event of surgical procedures, although unlikely - granddaughter agrees, will likely choose [facility] in am. HTN - BP labile - hold home meds at this time Hypothyroidism - resume home meds once taking PO GI ppx: - start IV PPI DVT ppx: SCDs. TEDs. Note: holding PO meds until able to take. CODE STATUS: DNR/DNI Vital Signs Vital Signs Date Time Temp Pulse Resp B/P (MAP) Pulse Ox O2 Delivery O2 Flow Rate FiO2 08/22/21 21:32 95/53 (67) 08/22/21 21:26 70 95 08/22/21 16:34 22 Room Air 08/22/21 16:24 98.2 Laboratory Data Labs 24H Laboratory Tests 2 08/22/21 15:45: Immature Granulocyte % (Auto) 0.1, Neutrophils (%) (Auto) 87.6H, Lymphocytes (%) (Auto) 6.4L, Monocytes (%) (Auto) 5.2, Eosinophils (%) (Auto) 0.6, Basophils (%) (Auto) 0.1, Neutrophils # (Auto) 5.9, Lymphocytes # (Auto) 0.4L, Monocytes # (Auto) 0.4, Eosinophils # (Auto) 0.0, Basophils # (Auto) 0.0, Nucleated Red Blood Cells % (auto) 0.0, Anion Gap 10, Glomerular Filtration Rate > 60.0, Calcium Level 8.6L, Total Bilirubin 0.3, Direct Bilirubin < 0.1, Aspartate Amino Transf (AST/SGOT) 29, Alanine Aminotransferase (ALT/SGPT) 19, Alkaline Phosphatase 47, Total Creatine Kinase 152, Creatine Kinase MB 2.0, Creatine Kinase MB Relative Index 1.32, Troponin I High Sensitivity 5.0, Total Protein 6.9, Albumin 3.5, Albumin/Globulin Ratio 1.0L, Lipase 140 CBC/BMP Laboratory Tests 08/22/21 15:45 Home Medications Scheduled Alpha Lipoic Acid (Alpha Lipoic Acid) 600 Mg Capsule, 600 MG PO BID Amlodipine Besylate (Amlodipine Besylate) 2.5 Mg Tablet, 2.5 MG PO DAILY Chlorthalidone (Chlorthalidone) 25 Mg Tablet, 12.5 MG PO Q3RD Famotidine (Famotidine) 10 Mg Tablet, 10 MG PO DAILY L.acidoph/L.bulg/B.bif/S.therm (Bacid Caplet) 1 Each Tablet, 1 TAB PO WM Levothyroxine Sodium (Synthroid) 50 Mcg Tablet, 50 MCG PO 3XW SATURDAY, SATURDAY AND SATURDAY Levothyroxine Sodium (Synthroid) 75 Mcg Tablet, 75 MCG PO 4XWK SATURDAY, SATURDAY, SATURDAY AND SATURDAY Lisinopril (Lisinopril) 20 Mg Tablet, 10 MG PO DAILY Potassium Chloride (Potassium Chloride) 20 Meq Tab.er.prt, 20 MEQ PO DAILY Rivaroxaban (Xarelto) 20 Mg Tablet, 20 MG PO QPM TAKES AFTER DINNERTIME Simvastatin (Simvastatin) 20 Mg Tablet, 20 MG PO QHS Allergies Coded Allergies: moxifloxacin (Verified Allergy, Unknown, 08/22/21) A-FIB/CHADSVASC A-FIB History Current/History of A-Fib/PAF?: No Current PO Anticoag Therapy: Yes VIOLETTA CAMERON MD Aug 22, 2021 23:10
[2021-08-23 02:35] LABS: RSV AMPLIFICATION NEGATIVE (NEGATIVE)
[2021-08-23 03:15] VITALS: BP 114/61
[2021-08-23] MEDS: NS 1,000 ML IV SCH ×2 (03:35→09:09)
[2021-08-23 05:23] LABS: BASO % 0.1 % (0.0-1.0); HEMATOCRIT 32.8 % (36.0-47.0); HEMOGLOBIN 10.7 g/dl (12.0-15.5); LYMPH # 0.3 10^3/uL (1.5-5.0); LYMPH % 4.3 % (24.0-44.0); MEAN CORPUSCULAR HEMOGLOBIN 32.6 pg (27.0-33.0); MEAN CORPUSCULAR HGB CONC 32.6 g/dl (32.0-36.5); MONO # 0.4 10^3/uL (0.0-0.8); MONO % 5.2 % (2.0-8.0); NEUTROPHILS # 6.7 10^3/uL (1.5-8.5); NEUTROPHILS % 89.9 % (36.0-66.0); PLATELET COUNT, AUTOMATED 192 10^3/uL (150-450); RED BLOOD COUNT 3.28 10^6/uL (4.00-5.40); WHITE BLOOD COUNT 7.5 10^3/uL (4.0-10.0)
[2021-08-23 05:45] LABS: ALBUMIN 2.7 GM/DL (3.2-5.2); BILIRUBIN,TOTAL 0.2 MG/DL (0.2-1.0); CALCIUM LEVEL 8.3 MG/DL (8.8-10.2); CREATININE FOR GFR 0.98 MG/DL (0.55-1.30); GLOMERULAR FILTRATION RATE 57.4 (>32); MAGNESIUM LEVEL 1.9 MG/DL (1.8-2.4); POTASSIUM SERUM 4.4 MEQ/L (3.5-5.1); TOTAL PROTEIN 5.8 GM/DL (6.4-8.2)
[2021-08-23] MEDS ORDERED: ALPH600C3 PO (06:41)
[2021-08-23] MEDS ORDERED: CHLO125TA PO (06:41)
[2021-08-23] MEDS ORDERED: FAMO10TA52 PO (06:41)
[2021-08-23] MEDS ORDERED: BACITAB PO (06:41)
[2021-08-23] MEDS ORDERED: AMLO2.5T3 PO (06:41)
[2021-08-23] MEDS ORDERED: HOME MED LIST COMPLETE! XX SCH (06:45)
[2021-08-23 08:00] VITALS: BP 100/55
--- NOTE | 2021-08-23 08:03 | REP ---
INDICATION: ADMITTED FOR SBO, ASSESS DISTENSION COMPARISON: 08/22/2021 TECHNIQUE: Portable supine view of the abdomen and pelvis. FINDINGS: Bowel gas pattern is relatively nonspecific and without evidence for obstruction or perforation. A nasogastric tube is identified in the left upper quadrant. No organomegaly. Skeletal structures demonstrate advanced degenerative changes. Contrast material from prior CT examination opacifies the bladder. IMPRESSION: Nonspecific bowel gas pattern. <Electronically signed by Leoncio Cerda > 08/23/21 0432
[2021-08-23 12:00] VITALS: BP 140/67
--- NOTE | 2021-08-23 12:39 | CR ---
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 In any case, from a surgical standpoint she has had a bowel movement a few days ago but nothing since that time. She has had some progressive abdominal distention without nausea but crampy abdominal pain with vomiting earlier today. She presents with abdominal distention, crampy abdominal pain, and CT scan consistent with small bowel obstruction to the Emergency Room and I am asked to see her for additional recommendations. PAST MEDICAL HISTORY: Significant for history of hypertension, hypothyroidism, multiple myeloma, previous DVT currently on anticoagulation, Infusaport placement. PHYSICAL EXAMINATION: Frail 86-year-old female who looks stated age. HEENT is unremarkable. Neck is supple without adenopathy. Lungs are clear anteriorly. Heart is regular. Abdomen is distended. Her NG-tube was in but not draining all that much, advanced a little bit further and was able to get some additional air out and otherwise she has a distended abdomen and it is not significantly tender to palpation but it is uncomfortable as the patient states. She does not complain of severe pain at this time and after the NG-tube was placed, the nurse states that the patient's pain and discomfort seems to be better. She has not been taking any pain medication either. IMPRESSION/PLAN: Patient has evidence of ascites on her abdominal CT scan and with edema throughout the small bowel and the concern at this point is that this edema, ascites is secondary to either malignancy or possibly malnutrition. In general, NG-tube decompression is reasonable at this time. I am actually not sure if she truly is an operative candidate. I would feel that her risk is extremely high and with her current decision to be comfort care, it is somewhat unreasonable to proceed with an operative intervention if this turns out to be a bowel obstruction secondary to malignancy and more importantly if this is secondary to adhesions, I am not sure how she would heal or whether she would be able to be discharged from the hospital given her frail appearance. Thus, at this point, I would recommend attempts at nonoperative, i.e. NG-tube, NPO for now, fluid resuscitation and that is a reasonable for the first portion of the treatment. It may be reasonable to tap the ascites for cytology and if this is malignant ascites even more reason not to proceed with operative intervention. It may give some information to the family concerning their direction of care as well. In any case, we will be available for additional recommendations. We will see her in the morning and if further decisions are made with the family at that time we will be available for further recommendations should that be necessary.
--- NOTE | 2021-08-23 14:04 | ECGEPIP ---
[facility] - ED Test Date: 2021-08-22 Pat Name: NEHEMIAS COSME Department: Room: - Gender: Female Head Bone Grinder: joceline : [phone] Requested By: HOWIE Benedict Order Number: [id number] Reading MD: Jimmy Stafford Measurements Intervals Reynolds Rate: 64 P: 65 WA: 184 QRS: 10 QRSD: 90 T: 27 QT: 424 QTc: 437 Interpretive Statements Normal sinus rhythm Nonspecific T wave abnormality Similar to tracing done 05-31-21 Electronically Signed on 08-23-2021 14:04:21 EST by Jimmy Stafford
[2021-08-23] MEDS: MORPHINE 4 MG/ML 1ML VIAL/SYRINGE (J2270) IV PRN ×2 (15:25→21:05)
--- NOTE | 2021-08-23 15:41 | IPNPDOC ---
Subjective Date Seen The patient was seen on 08/23/21. Subjective Chief Complaint/HPI Patient continues to have pain in the right lower quadrant which is extremely tender to palpation, there has been no bowel movement or passage of flatus, she remains on NG tube with the suction. Patient states that she is a DNR/DNI and does not want to be resuscitated. Her medical oncology notes from 08/22/2021 which is indicated that patient has declined further chemotherapy and is currently working with hospice and is pursuing comfort measures. I spoke with Ms. Yanna Beal healthcare proxy at bed side today she reaffirmed her grandmother's wishes for DNR/DNI status. I explained Dr. Buchanan's impression that she is a very poor surgical candidate and would likely not heal after any kind of surgery and unable to leave the hospital. Dr. Buchanan is recommended continuing on n.p.o. IV fluid and NG tube suction for now to see if there is any spontaneous resolution of her bowel obstruction. Yanna has corroborated the discussion yesterday that she does not want surgery. She also clarified that she does not want any escalation of care if the patient becomes hypotensive no central line or vasopressors or antibiotics. She would like to hold off on making a decision for [employer] today and see if there is any improvement by tomorrow. If there is no improvement by tomorrow then she is agreeable to pursue with the [employer] and hospice. She did say that if her pain becomes unbearable and patient becomes hypotensive/septic/delirious then she would transition her to [employer] status immediately. She did want to be called if there is any drastic change in patient's clinical condition. Objective Physical Examination General Exam: Positive: Alert, Cooperative Eye Exam: Positive: PERRLA, Conjunctiva & lids normal, EOMI; Negative: Sclera icteric ENT Exam: Positive: Atraumatic, Mucous membr. moist/pink, Pharynx Normal, Other ENT (Bitemporal wasting) Neck Exam: Positive: Supple; Negative: JVD, thyromegaly Chest Exam: Positive: Clear to auscultation, Normal air movement Heart Exam: Positive: Rate Normal, Regular Rhythm, Normal S1, Normal S2 Abdomen Exam: Positive: Soft, Tenderness (Right iliac fossa), Other (, absent bowel sounds. ); Negative: Normal bowel sounds Extremity Exam: Negative: Clubbing, Cyanosis, Edema Psych Exam: Positive: Memory Intact, Oriented x 3 Assessment /Plan Assessment This is a pleasant 86F, with a PMHx of multiple myeloma, essential hypertension, hypothyroidism, left upper extremity DVT associated with chemo port, mild cognitive impairment presented to the hospital on 08/22/2021 for severe right lower quadrant abdominal pain associated with vomiting after dinner. CT imaging in the ER was suggestive of small bowel obstruction versus volvulus. Imaging was reviewed by Dr. Buchanan who has also examined the patient. Nasogastric tube was inserted in the ER for treatment decompress the stomach after which patient felt significant improvement. Patient has been admitted for small bowel obstruction. SBO Will manage medically with n.p.o. IV fluid nasogastric suction Patient is a very poor surgical candidate. Patient and healthcare proxy granddaughter does not want to pursue with surgery. If SBO does not resolve with the conservative management they would like to transition her to [employer]. Multiple Myeloma She was diagnosed at age 66 in [place]. Smoldering type for 1 year. It progressed very fast and she has gone through 13 types of chemotherapy details are not available. Her last treatment was in March 06 with an investigational drug. She has followed up with oncology here and has decided not to continue any further treatment. Severe protein calorie malnutrition/ weakness and debility BMI of 19.1 Weight loss of more than 18 pounds in 3months, bitemporal wasting, wasting of small muscles of hand and feet. Hyponatremia corrected Hypertension Low normal blood pressure Patient n.p.o. Hold all antihypertensive Hypothyroid Hold Synthroid Multiple Myeloma Patient has elected to discontinue chemotherapy LUE DVT related to chemo port Hold Xarelto Plan/VTE VTE Prophylaxis Ordered?: Yes VS, I&O, 24H, Fishbone Vital Signs/I&O Vital Signs Date Time Temp Pulse Resp B/P (MAP) Pulse Ox O2 Delivery O2 Flow Rate FiO2 08/23/21 12:00 99.4 77 17 140/67 (91) 99 Room Air I&O- Last 24 Hours up to 6 AM 08/23/21 06:00 Intake Total 1000 ml Balance 1000 ml Laboratory Data 24H LABS Laboratory Tests 2 08/22/21 15:45: Immature Granulocyte % (Auto) 0.1, Neutrophils (%) (Auto) 87.6H, Lymphocytes (%) (Auto) 6.4L, Monocytes (%) (Auto) 5.2, Eosinophils (%) (Auto) 0.6, Basophils (%) (Auto) 0.1, Neutrophils # (Auto) 5.9, Lymphocytes # (Auto) 0.4L, Monocytes # (Auto) 0.4, Eosinophils # (Auto) 0.0, Basophils # (Auto) 0.0, Nucleated Red Bloo d Cells % (auto) 0.0, Anion Gap 10, Glomerular Filtration Rate > 60.0, Calcium Level 8.6L, Total Bilirubin 0.3, Direct Bilirubin < 0.1, Aspartate Amino Transf (AST/SGOT) 29, Alanine Aminotransferase (ALT/SGPT) 19, Alkaline Phosphatase 47, Total Creatine Kinase 152, Creatine Kinase MB 2.0, Creatine Kinase MB Relative Index 1.32, Troponin I High Sensitivity 5.0, Total Protein 6.9, Albumin 3.5, Albumin/Globulin Ratio 1.0L, Lipase 140 08/23/21 01:27: Coronavirus (COVID-19)(PCR) NEGATIVE, Influenza Type A (RT-PCR) NEGATIVE, Influenza Type B (RT-PCR) NEGATIVE, Respiratory Syncytial Virus (PCR) NEGATIVE 08/23/21 05:02: Immature Granulocyte % (Auto) 0.5, Neutrophils (%) (Auto) 89.9H, Lymphocytes (%) (Auto) 4.3L, Monocytes (%) (Auto) 5.2, Eosinophils (%) (Auto) 0.0, Basophils (%) (Auto) 0.1, Neutrophils # (Auto) 6.7, Lymphocytes # (Auto) 0.3L, Monocytes # (Auto) 0.4, Eosinophils # (Auto) 0.0, Basophils # (Auto) 0.0, Nucleated Red Blood Cells % (auto) 0.0, Anion Gap 9, Glomerular Filtration Rate 57.4, Calcium Level 8.3L, Total Bilirubin 0.2, Aspartate Amino Transf (AST/SGOT) 14, Alanine Aminotransferase (ALT/SGPT) 14, Alkaline Phosphatase 45, Total Protein 5.8L, Albumin 2.7#L, Albumin/Globulin Ratio 0.9L, Magnesium Level 1.9 CBC/BMP Laboratory Tests 08/22/21 15:45 08/23/21 05:02 Kathrin Means MD Aug 23, 2021 14:16
[2021-08-23] MEDS: D5W/0.9% SODIUM CHLORIDE 1,000 ML IV SCH (15:55)
[2021-08-23] MEDS ORDERED: ONDANSETRON 4MG/2ML VIAL IV PRN (15:55)
[2021-08-23 16:00] VITALS: BP 124/76
[2021-08-23 20:00] VITALS: BP 100/52
[2021-08-24] VITALS: BP 102/60
[2021-08-24 04:00] VITALS: BP 97/63
[2021-08-24] MEDS: D5W/0.9% SODIUM CHLORIDE 1,000 ML IV SCH (06:15)
[2021-08-24 07:32] VITALS: BP 107/59
--- NOTE | 2021-08-24 09:43 | REP ---
INDICATION: SBO. COMPARISON: 08/23/2021, 08/22/2021. TECHNIQUE: Single view abdomen and pelvis. FINDINGS: There is mild air scattered throughout a nondilated colon. There is a suggestion of a few mildly dilated small bowel loops in the central abdomen. There are diffuse vascular calcifications. The distal tip of a nasogastric tube is visualized, the side port is not seen. Excreted contrast from prior CT scan is visualized within the urinary bladder, which demonstrates normal contour. There are degenerative changes of the spine and hips. IMPRESSION: Radiographically nonspecific bowel gas pattern. There is a suggestion of a few mildly dilated small bowel loops in the central abdomen. <Electronically signed by Carson Hayes > 08/24/21 [id number]
[2021-08-24] MEDS: MORPHINE 4 MG/ML 1ML VIAL/SYRINGE (J2270) IV PRN ×2 (09:46→13:31)
--- NOTE | 2021-08-24 11:06 | IPNPDOC ---
Subjective Date Seen The patient was seen on 08/24/21. Subjective Chief Complaint/HPI Patient seen at bedside this am. Patient is comfortable not in any pain, awake and alert and able to answer questions. Abd Xray reviewed. No bowel movement , no passing of flatus, persistetn abdominal pain. Discussed with Yanna she would like to proceed with [facility] [facility] [facility] and Hospice. Objective Physical Examination General Exam: Positive: Alert, No Acute Distress ENT Exam: Positive: Other ENT Neck Exam: Positive: Supple Chest Exam: Positive: Clear to auscultation Heart Exam: Positive: Rate Normal, Regular Rhythm, Normal S1, Normal S2 Abdomen Exam: Positive: Soft, Tenderness (Right iliac fossa), Other (, absent bowel sounds. ); Negative: Normal bowel sounds Extremity Exam: Negative: Edema Assessment /Plan Assessment This is a pleasant 86F, with a PMHx of multiple myeloma, essential hypertension, hypothyroidism, left upper extremity DVT associated with chemo port, mild cognitive impairment presented to the hospital on 08/22/2021 for severe right lower quadrant abdominal pain associated with vomiting after dinner. CT imaging in the ER was suggestive of small bowel obstruction versus volvulus. Imaging was reviewed by Dr. Buchanan who has also examined the patient. Nasogastric tube was inserted in the ER for treatment decompress the stomach after which patient felt significant improvement. Patient has been admitted for small bowel obstruction. SBO Improvement with medical management. Patient is a very poor surgical candidate. Patient and healthcare proxy granddaughter does not want to pursue with surgery. HCP would like to proceed with [facility] [facility] [facility] and Hospice. Multiple Myeloma She was diagnosed at age 66 in [place]. Smoldering type for 1 year. It progressed very fast and she has gone through 13 types of chemotherapy details are not available. Her last treatment was in March 06 with an investigational drug. She has followed up with oncology here and has decided not to continue any further treatment. Severe protein calorie malnutrition/ weakness and debility BMI of 19.1 Weight loss of more than 18 pounds in 3months, bitemporal wasting, wasting of small muscles of hand and feet. Other medical problems: Hyponatremia Hypertension Hypothyroid LUE DVT related to chemo port Plan/VTE VTE Prophylaxis Ordered?: No (commanding officer traffic division) VS, I&O, 24H, Fishbone Vital Signs/I&O Vital Signs Date Time Temp Pulse Resp B/P (MAP) Pulse Ox O2 Delivery O2 Flow Rate FiO2 12/9/21 09:56 17 Room Air 08/24/21 07:32 99.0 72 107/59 (09) 68 I&O- Last 24 Hours up to 6 AM 08/24/21 06:00 Intake Total 1950 ml Output Total 600 ml Balance 1350 ml Kathrin Means MD Aug 24, 2021 11:06
[2021-08-24] MEDS ORDERED: ACETAMINOPHEN 650 MG SUPP PR PRN (11:10)
[2021-08-24] MEDS ORDERED: ONDANSETRON 4 MG ORAL DISINTEGRATING TAB PO PRN (11:10)
[2021-08-24] MEDS ORDERED: ONDANSETRON 4MG/2ML VIAL IV PRN (11:10)
[2021-08-24] MEDS ORDERED: HYOSCYAMINE SULFATE 0.125 MG SUBL TABLET PO PRN (11:10)
[2021-08-24 13:41] VITALS: BP 107/59
--- NOTE | 2021-08-24 14:49 | IPNPDOC ---
Text Note Date of Service The patient was seen on 08/24/21. NOTE SUBJECTIVE: Patient is a 86-year-old female with a history of multiple myeloma and questionable mild dysplasia presenting with abdominal distention, abdominal pain and CT scan consistent with small bowel obstruction. Patient was seen at bedside today in no acute distress. Still not having any bowel movements, passing gas, no bowel sounds at this time. Repeat abdominal x-ray today showed a few mildly dilated small bowel loops. REVIEW OF SYSTEMS: CONSTITUTIONAL: denies fever, chills HEENT: denies headaches RESPIRATORY: denies wheezing, shortness of breath CARDIOVASCULAR: denies chest pain, palpations GASTROINTESTINAL: +constipation; denies abdominal pain at this time GENITOURINARY: denies burning with urination MUSCULOSKELETAL: denies myalgias OBJECTIVE PHYSICAL EXAMINATION: VITAL SIGNS: Please see below. GENERAL: in no acute distress, HEENT: PERRLA, EOMI, mucous membranes moist CARDIOVASCULAR: regular rate and rhythm; S1 S2; no murmur, rubs or gallops noted RESPIRATORY: clear to auscultation bilaterally, no wheezes, rhonchi, rales noted ABDOMINAL: Soft mildly distended abdomen; absent bowel sounds; tenderness to palpation in the right lower quadrant/iliac fossa NEUROLOGICAL: Cranial nerves II through XII grossly intact; no focal neurologic deficits noted LABORATORY DATA, IMAGING STUDIES, MICROBIOLOGY: Please see below. ASSESSMENT AND PLAN: This is a 86-year-old female with small bowel obstruction. - patient would not like to pursue surgery; patient is also a poor surgical candidate; health care proxy would like to pursue SU[facility] TECHNICIAN and Hospice - will D/C NG tube today - tomorrow will trial her on clear liquids in the morning GME ATTESTATION My faculty preceptor for this patient encounter was physically present during the encounter and was fully available. All aspects of the patient interview, examination, medical decision making process, and medical care plan development were reviewed and approved by the faculty preceptor. The faculty preceptor is aware and concurs with the plan as stated in the body of this note and will attest to such by his/her cosignature. VS,Fishbone, I+O VS, Fishbone, I+O Vital Signs Date Time Temp Pulse Resp B/P (MAP) Pulse Ox O2 Delivery O2 Flow Rate FiO2 08/24/21 13:41 99.0 72 17 107/59 91 Room Air I&O- Last 24 Hours up to 6 AM 08/24/21 06:00 Intake Total 1950 ml Output Total 600 ml Balance 1350 ml Kalli Albright DO Aug 24, 2021 14:49
[2021-08-24] MEDS: LORazepam 2 MG/ML VIAL IV PRN (16:10)
[2021-08-25] MEDS: MORPHINE 4 MG/ML 1ML VIAL/SYRINGE (J2270) IV PRN ×2 (04:45→18:55)
--- NOTE | 2021-08-25 10:57 | IPNPDOC ---
Text Note Date of Service The patient was seen on 08/25/21. NOTE Patient seen this morning. She is somnolent but easily wakes up in called. She says she is not passing any gas. Abdominal pain is controlled. She was asking for some oral diet. Asked me what the time was and when her granddaughter is going to come. Plan is for home hospice next week. We will change to [facility] status. VS,Fishbone, I+O VS, Fishbone, I+O Vital Signs Date Time Temp Pulse Resp B/P (MAP) Pulse Ox O2 Delivery O2 Flow Rate FiO2 08/25/21 04:55 12 08/24/21 13:41 99.0 72 107/59 91 Room Air I&O- Last 24 Hours up to 6 AM 08/25/21 06:00 Intake Total 0 ml Output Total 0 ml Balance 0 ml Kathrin Means MD Aug 25, 2021 10:57
[2021-08-25] MEDS: LORazepam 2 MG/ML VIAL IV PRN (21:07)
[2021-08-26] MEDS: MORPHINE 4 MG/ML 1ML VIAL/SYRINGE (J2270) IV PRN ×3 (06:30→23:23)
[2021-08-26] MEDS: SCOPOLAMINE 1MG TRANSDERMAL PATCH TOP SCH (08:28)
--- NOTE | 2021-08-26 10:12 | IPN ---
PROGRESS NOTE DATE: 08/26/2021 SUBJECTIVE: Patient was seen and examined at the bedside. Chart has been reviewed. This morning, patient is lethargic, but says she has no pain, not passing any gas. No fever or chills. No nausea or vomiting. No abdominal pain. Goes back to sleep quickly and cannot finish review of systems. PHYSICAL EXAMINATION: VITAL SIGNS: Temperature 99, pulse 72, respiratory rate 17, blood pressure 107/59, 81% on room air. GENERAL: Patient is somnolent, arousable, but awake, alert, oriented to her name only. HEENT: Dry mucous membranes with chapped lips. LUNGS: Diminished, but clear to auscultation. No wheezing or rales. HEART: S1, S2. Sinus rhythm. ABDOMEN: Soft, distended. No bowel sounds. Tender in the right lower quadrant. EXTREMITIES: No cyanosis or clubbing. LABORATORY DATA/IMAGING STUDIES/MICROBIOLOGY: Have been reviewed. Please see the chart. ASSESSMENT: This is an 86-year-old female admitted on 08/22/2021 with past medical history significant for hypertension, multiple myeloma, left upper extremity deep venous thrombosis (DVT) due to chemotherapy port, previously on Xarelto, hypothyroidism, admitted due to abdominal pain, found to have bowel obstruction. Patient was seen by surgery, Dr. Buchanan. Nasogastric tube was inserted in the emergency room (ER) for decompression. Patient was a poor surgical candidate. Healthcare proxy, granddaughter, did not want to proceed with surgery. Active issues are: 1. Small bowel obstruction, refusing surgery, poor surgical candidate. Currently comfort measures only in hospice. 2. Multiple myeloma diagnosed at age 66, smoldering type, status post chemotherapy. Last treatment was March 06, 2021, with investigational trial. 3. Severe protein calorie malnutrition with debility, body mass index (BMI) of 19. 4. Hypertension. 5. Hyponatremia. 6. Hypothyroidism. 7. Left upper extremity deep venous thrombosis (DVT) due to chemotherapy port. PLAN: Patient is comfort measures, do not resuscitate, DO NOT INTUBATE (DNI). BILLET SAWYER (comfort measures only) medications. MTDD
[2021-08-26] MEDS: LORazepam 2 MG/ML VIAL IV PRN (23:23)
[2021-08-27] MEDS: LORazepam 2 MG/ML VIAL IV PRN ×2 (09:12→23:09)
[2021-08-27] MEDS: MORPHINE 4 MG/ML 1ML VIAL/SYRINGE (J2270) IV PRN ×3 (09:13→23:09)
[2021-08-27] MEDS ORDERED: ONDANSETRON 4MG/2ML VIAL IV PRN (09:15)
[2021-08-28] MEDS ORDERED: LORazepam 2 MG/ML VIAL As Ordered ONE (05:31)
[2021-08-28] MEDS: LORazepam 2 MG/ML VIAL IV PRN (05:38)
[2021-08-28] MEDS: MORPHINE 4 MG/ML 1ML VIAL/SYRINGE (J2270) IV PRN ×2 (12:28→17:17)
[2021-08-28] MEDS ORDERED: ONDANSETRON 4 MG ORAL DISINTEGRATING TAB PO PRN (17:15)
[2021-08-28] MEDS ORDERED: LORazepam 1 MG TAB PO PRN (17:15)
[2021-08-28] MEDS ORDERED: HYOS125TA PO (17:17)
[2021-08-28] MEDS ORDERED: ATIV1TAB10 PO (17:17)
[2021-08-28] MEDS ORDERED: MORP1SOL5 PO (17:17)
[2021-08-28] MEDS ORDERED: TRAN1DIS4 TOP (17:19)
[2021-08-29] MEDS: MORPHINE 10MG/0.5ML ORAL CONCENTRATE SOLUTION U/D SL PRN ×3 (00:42→10:35)
[2021-08-29] MEDS: LORazepam 2 MG/ML VIAL IV PRN (00:42)
[2021-08-29] MEDS: SCOPOLAMINE 1MG TRANSDERMAL PATCH TOP SCH (08:12)
[2021-08-29] MEDS: ATROPINE SULFATE 1% OP SOLN 2 ML BTL SL PRN ×2 (08:13→10:35)
--- NOTE | 2021-08-29 10:34 | DS.PDOC ---
Discharge Summary General Date of Admission Aug 22, 2021 at 22:36 Date of Discharge 08/29/21- [employer]/DNR/DNI Discharge Summary Discharge diagnosis: 1. Small bowel obstruction, refusing surgery, poor surgical candidate. Currently comfort measures only in hospice. 2. Multiple myeloma diagnosed at age 66, smoldering type, status post chemotherapy. Last treatment was March 06, 2021, with investigational trial. 3. Severe protein calorie malnutrition with debility, body mass index (BMI) of 19. 4. Hypertension. 5. Hyponatremia. 6. Hypothyroidism. 7. Left upper extremity deep venous thrombosis (DVT) due to chemotherapy port. Discharge medications: See below Discharge instructions: DO NOT RESUSCITATE DO NOT INTUBATE comfort measures only primary care physician to assist with [employer] needs as outpatient General surgeon: Dr. Florian Buchanan Hospital course: This is an 86-year-old female admitted on 08/22/2021 with past medical history significant for hypertension, multiple myeloma, left upper extremity deep venous thrombosis (DVT) due to chemotherapy port, previously on Xarelto, hypothyroidism, admitted due to abdominal pain, found to have bowel obstruction. Patient was seen by surgery, Dr. Buchanan. Nasogastric tube was inserted in the emergency room (ER) for decompression. Patient was a poor surgical candidate. Healthcare proxy, granddaughter, did not want to proceed with surgery. Patient was changed to [facility] status was provided comfort measures only medications. Discharge physical exam: VITAL SIGNS: see below GENERAL: Patient is somnolent, arousable, but awake, alert, oriented to her name only. HEENT: Dry mucous membranes with chapped lips. LUNGS: Diminished, but clear to auscultation. No wheezing or rales. HEART: S1, S2. Sinus rhythm. ABDOMEN: Soft, distended. No bowel sounds. Tender in the right lower quadrant. EXTREMITIES: No cyanosis or clubbing. LABORATORY DATA/IMAGING STUDIES/MICROBIOLOGY: Have been reviewed. Please see the chart. Time spent on discharge 30 minutes Vital Signs/I&Os Vital Signs Date Time Temp Pulse Resp B/P (MAP) Pulse Ox O2 Delivery O2 Flow Rate FiO2 08/28/21 17:17 18 08/24/21 13:41 99.0 72 107/59 91 Room Air I&O- Last 24 Hours up to 6 AM 08/29/21 06:00 Intake Total 0 ml Output Total 275 ml Balance -275 ml Discharge Medications Scheduled Scopolamine (Transderm-Scop) 1 Each Patch.td.3, 1 MG TOP Q72H Scheduled PRN Hyoscyamine Sulfate (Hyoscyamine Sulfate) 0.125 Mg Tab.subl, 0.125 MG PO Q4HP PRN for TERMINAL SECRETIONS Use sublingually if unable to swallow Lorazepam (Ativan) 0.5 Mg Tablet, 0.5 MG PO Q4HP PRN for ANXIETY/AGITATION Use sublingually if unable to swallow Morphine Sulfate (Morphine Sulfate) 100 Mg/5 Ml Solution, 0.25-1 ML PO Q2H PRN for PAIN OR DYSPNEA Use sublingually if unable to swallow Allergies Coded Allergies: moxifloxacin (Verified Allergy, Unknown, 08/22/21) FADI BAIRD MD Aug 29, 2021 10:34
== END 2021-08-29 11:47 | disposition hospice, home (50) | DRG 388 ==
LOC: EDBD 15:26 → M ED 15:26 → M ED INP 22:36 → M PCU 08-23 03:18 → M MSPAV 08-25 12:58
PROVIDERS: ADMIT Family Medicine; ATTEND General Practice
DX: K56.609 Unspecified intestinal obstruction, unspecified as to partial versus complete obstruction (principal); E43 Unspecified severe protein-calorie malnutrition; C90.00 Multiple myeloma not having achieved remission; E87.1 Hypo-osmolality and hyponatremia; Z68.1 Body mass index [BMI] 19.9 or less, adult; I10 Essential (primary) hypertension; G31.84 Mild cognitive impairment of uncertain or unknown etiology; E03.9 Hypothyroidism, unspecified; Z86.718 Personal history of other venous thrombosis and embolism; Z51.5 Encounter for palliative care; Z66 Do not resuscitate; Z79.899 Other long term (current) drug therapy; Z88.8 Allergy status to other drugs, medicaments and biological substances